=== PATIENT | male | born 1980 | race Two or more races ===

== ENCOUNTER 2023-09-14 21:42 | Emergency (ER) | payer MEDICAID, SELFPAY ==
[2023-09-14 21:45] VITALS: BP 140/81; PULSE 79; TEMP 36.9; O2SAT 97; BMI 42.2
--- NOTE | 2023-09-14 21:52 | ED_ITS ---
HPI HPI - Back Pain/Injury General Chief Complaint: Back Pain/Injury Stated Complaint: back pain Time Seen by Provider: 09/14/23 21:46 Source: patient Mode of arrival: walk-in History of Present Illness HPI Narrative: This 42-year-old male with a history of left-sided sciatica since last December presents for evaluation of ongoing and worsening pain. The pain is in his left buttock area and radiates down the lateral aspect of his left leg to his knee. He states at times it radiates down to his foot and he has spasm of his great toe. He denies any bowel or bladder dysfunction. He denies any recent falls or injuries. He works as a employee development director and states he has been doing a lot of twisting motion because they are clearing out brush. He has not been able to sleep for the last several nights because he cannot get comfortable when he tries to relax. He states that once he gets up in the morning and starts moving he can tolerate the pain but when he tries to lay down he cannot get comfortable. His made him come to the emergency department today because she states he has not slept in the past 3 nights so she has not slept either. He has not had any fever. He has not had any chest pain or shortness of breath. He has no calf pain or swelling. He does not smoke. He is not diabetic. He has an MRI scheduled on September 19 for further evaluation of this ongoing sciatica. He has been using Tylenol and gabapentin without significant improvement in his pain. He states that he puts ice packs behind his buttock on the way home from work and has been doing his physical therapy exercises. I reviewed his [facility] report and the gabapentin has been prescribed by Dr. Johnson. Related Data Home Medications ?Medication ?Instructions ?Recorded ?Confirmed gabapentin 300 mg capsule mg 09/14/23 Allergies Allergy/AdvReac Type Severity Reaction Status Date / Time No Known Drug Allergies Allergy Verified 09/14/23 21:52 Opioid HPI Opioid Management Most Recent Opioid Data: Last Pain Scale 10 09/14/23 22:47 Last ED Pain Assessment 09/14/23 22:47 Prescription drug monitoring program results: PDMP reviewed and no issues identified Review of Systems ROS Status of ROS 10 or more systems reviewed and unremark able except as noted in history and below Exam Narrative Exam Narrative: Vital signs and Nursing Notes reviewed: Patient is afebrile with a normal pulse, blood pressure is mildly elevated at 140/81, he is not hypoxic with pulse ox of 90% on room air General: Awake, alert, oriented, uncomfortable appearing moderately overweight adult male, he is sitting on the stretcher mostly on his right buttock due to pain in the left buttock and left leg, no respiratory distress HEENT: Normocephalic atraumatic, mucous membranes are moist and pink, eyes are clear, normal conjunctiva, vision is grossly intact Neck: Supple, no meningeal signs, no anterior or posterior cervical lymphadenopathy Chest: Lungs are clear to auscultation with good air entry, there is no wheezing rhonchi or rales appreciated no accessory muscle use, patient is speaking in complete sentences-no chest wall tenderness to palpation CVS: Regular rate and rhythm S1-S2, no murmurs rubs or gallops, pulses are brisk and equal bilaterally ABD: Soft, nondistended, nontender, no rebound guarding or rigidity, bowel sounds are normal, no pulsatile masses appreciated Extremities: Moving all extremities, no lower extremity tenderness or swelling noted, Musculoskeletal: There is tenderness in the left buttock, lateral aspect of the left trochanter and along the left thigh iliotibial band to the knee. There is no calf tenderness, swelling, redness or indurated cords. Skin: Normal in appearance without rash,pallor, petechiae or purpura Neuro: No focal deficits, no saddle anesthesia, deep tendon patellar reflexes were 1/ 4 on the right knee and 3/4 on the left knee Constitutional Vital Signs, click to edit/add: Last Vital Signs Temp 98.4 F 09/14/23 21:45 Pulse 79 09/14/23 21:45 Resp 16 09/14/23 21:45 BP 140/81 09/14/23 21:45 Pulse Ox 97 09/14/23 21:45 O2 Del Method Room Air 09/14/23 21:45 Course Vital Signs Vital signs: Vital Signs Temperature 98.4 F 09/14/23 21:45 Pulse Rate 79 09/14/23 21:45 Respiratory Rate 16 09/14/23 21:45 Blood Pressure 140/81 09/14/23 21:45 Pulse Oximetry 97 09/14/23 21:45 Oxygen Delivery Method Room Air 09/14/23 21:45 Temperature 98.4 F 09/14/23 21:45 Pulse Rate 79 09/14/23 21:45 Respiratory Rate 16 09/14/23 21:45 Blood Pressure 140/81 09/14/23 21:45 Pulse Oximetry 97 09/14/23 21:45 Oxygen Delivery Method Room Air 09/14/23 21:45 MDM - Back Pain/Injury MDM Narrative Medical decision making narrative: This 42-year-old male with a history of sciatica presents for evaluation of ongoing and worsening left buttock pain that radiates down into his left lateral thigh to his knee. He has an MRI scheduled next Tuesday. He has been using gabapentin, Tylenol and ice as well as doing physical therapy to help relieve his symptoms to no avail. His made him come to the emergency department this evening because he has not slept in the last 3 days. He is not having any chest pain, palpitations, dizziness or neurologic symptoms. He was medicated emergency department with Solu-Medrol, Toradol, IM Valium and given oral Percocet and Zofran to prevent nausea. On re-evaluation, he is feeling better and thinks he will be comfortable going home. He will be given 2 Percocet to take home and a prescription for Percocet and ibuprofen, zofran, colace and medrol dose pack to use as needed for ongoing pain. He was encouraged to continue doing his stretching exercises as directed by physical therapy. Discharge Plan Discharge Stand Alone Forms: Portal Instructions Chief Complaint: Back Pain/Injury Clinical Impression: Sciatica, Lumbar radiculopathy Patient Disposition: Home, Self-Care Time of Disposition Decision: 22:58 Condition: Good Prescriptions / Home Meds: No Action gabapentin 300 mg capsule Print Language: Tristanian Referrals: Kiran Gaspar MD [Primary Care Provider] - 1 week
[2023-09-14] MEDS: KETOROLAC TROMETHAMINE 60 MG/2 ML VIAL IM (22:23)
[2023-09-14] MEDS: METHYLPREDNISOLONE SOD SUCC PF 125 MG/2 ML VIAL IM (22:24)
[2023-09-14] MEDS: DIAZEPAM 10 MG/2 ML SYRINGE 5 MG IM (22:24)
[2023-09-14] MEDS: OXYCODONE HCL/ACETAMINOPHEN 5MG/325MG 2 TAB PO (22:24)
[2023-09-14] MEDS: OXYCODONE HCL/ACETAMINOPHEN 5MG/325MG 1 TAB PO (22:25)
[2023-09-14] MEDS: ONDANSETRON 4 MG RAPDIS TABLET SL (22:38)
== END 2023-09-14 23:06 | disposition home or self-care (01) ==
PROVIDERS: Emergency Provider Emergency Medicine; PCP Family Medicine
DX: M54.32 Sciatica, left side (principal); M54.16 Radiculopathy, lumbar region
CPT/HCPCS: 96372; 99284; J1885; J2919; J3360; Q0162

== ENCOUNTER 2024-05-15 12:22 | Outpatient (OUT) | payer OTHER, SELFPAY | END 2024-05-15 12:23 | disposition home or self-care (01) | LOC: PST 12:22 | PROVIDERS: PCP Family Medicine; Visit Provider Surgery | DX: Z01.818 Encounter for other preprocedural examination (principal); Z86.0100 Personal history of colon polyps, unspecified ==

== ENCOUNTER 2024-05-23 08:07 | Day surgery (SDC) | payer OTHER, SELFPAY ==
--- NOTE | 2024-05-23 | OP_ITS ---
OPERATION DATE: 05/23/2024 PREOPERATIVE DIAGNOSIS: Personal history of colon polyps. POSTOPERATIVE DIAGNOSIS: 2 mm sigmoid polyp. PROCEDURE: Colonoscopy to cecum with cold forceps polypectomy x1. SURGEON: Norm Brito M.D. ANESTHESIA: Monitored anesthesia care. ESTIMATED BLOOD LOSS: Less than 1 mL. INDICATIONS AND CONSENT: Patient is a 43-year-old male with a personal history of colon polyps. Indications, risks, benefits, alternatives of proceeding with colonoscopy were explained extensively to the patient, including the risks of bleeding, colon perforation or anesthetic complications. All of his questions were answered. Informed consent was obtained. PROCEDURE: Patient was brought to the operating room, placed in the left lateral decubitus position. Monitored anesthesia care was provided. Rectal exam was performed which showed no masses or blood. The scope was inserted into the anal canal. Under direct visualization was advanced. It was advanced to the cecum where cecal markings were clearly identified. There was noted to be a good prep. Upon withdrawal of the scope, mucosal surfaces were carefully examined. There were no mass lesions or inflammatory changes. No significant diverticulosis. Within the distal sigmoid colon, there was noted to be a 2 mm sessile polyp on a fold that was removed with cold biopsy forceps with good hemostasis. The scope was retroflexed in the anal canal. There was no significant hemorrhoidal disease. The scope was then withdrawn. Patient tolerated procedure well, was sent to recovery room in good condition.surveillance colonoscopy should be in 5 years, but will depend on pathology report. CC: Kiran Gaspar M.D. KRISTINA
[2024-05-23 08:16] VITALS: BP 125/83; PULSE 88; TEMP 36.1; O2SAT 96; BMI 41.4
--- OUTSIDE RECORDS SUMMARY | 2024-05-23 08:17 | XMS_ITS | CCD ---
Author Organization [facility] Care Team Providers Care Special Education Tutor Name Role Phone DR OLIVER KRAMER Consulting Unavailable PAY, DR MENJIVAR Admitting Unavailable PAY, DR MENJIVAR Attending Unavailable NADERER, DR KIRAN Jernigan Primary Care Unavailable PAY, DR MENJIVAR Consulting Unavailable BRAVO, DR LETTY Drake Consulting Unavailable NADERER, DR KIRAN Jernigan Admitting Unavailable NADERER, DR KIRAN Jernigan Attending Unavailable NADERER, DR KIRAN Jernigan Primary Care Unavailable NADERER, DR KIRAN Jernigan Consulting Unavailable NANDINI MONZON Consulting Unavailable NILL, DR LINARES Consulting Unavailable JENARO, JOHNY Consulting Unavailable Policaro, Geovanna Consulting Unavailable Paul Mujica Consulting Unavailable CHERELLE BILLINGS Attending Unavailable NADEREVidal, KIRAN Primary Care Unavailable CHERELLE BILLINGS Attending Unavailable CHERELLE BILLINGS Referring Unavailable JUSTINE, KIRAN Primary Care Unavailable PEEWEE DALLAS Attending Unavailable KIRAN FLETCHER Referring Unavailable JUSTINE, KIRAN Primary Care Unavailable PEEWEE DALLAS Attending Unavailable PEEWEE DALLAS Referring Unavailable JUSTINE, KIRAN Primary Care Unavailable JACQUES DALLAS Attending Unavailable JUSTINE, KIRAN Referring Unavailable JUSTINE, KIRAN Primary Care Unavailable Peewee Campbell Unavailable [phone] Kiran Fletcher MD Primary Care Provider KIRAN FLETCHER Attending Unavailable SHAIKH TAO Attending Unavailable Kiran Fletcher MD Primary Care Provider Kiran Fletcher MD Primary Care Provider Kiran Fletcher MD Primary Care Provider KIRAN FLETCHER Primary Care Physician [phone] Milagros SOLORZANO Attending Unavailable KIRAN FLETCHER Referring Unavailable Allergies Allergy Classification Reported Allergen(s) Allergy Type Date of Onset Reaction(s) Facility (1 source) No Known Medication Allergies; Translations: [No Known Medication Allergies] Propensity to adverse reactions (disorder) [facility] Repository Medications Current Medications Medication Drug Class(es) Dates Sig (Normalized) Sig (Original) gabapentin 300 mg oral capsule (6 sources) Anti-epileptic Agent Start: 07-27-2023 End: 04-18-2024 take 1 capsule by mouth in the morning, then take 1 capsule by mouth in the evening, then take 1 capsule by mouth at bedtime gabapentin (Neurontin) 300 MG capsule Indications: Lumbar back pain with radiculopathy affecting left lower extremity Take 1 capsule (300 mg) by mouth in the morning and 1 capsule (300 mg) in the evening and 1 capsule (300 mg) before bedtime. 90 capsule 2 07/27/2023 04/18/2024 Discontinued Problems Active Problems Problem Classification Problem Date Documented Da te Episodic/Chronic Abdominal pain (1 source) Unspecified abdominal pain; Translations: [UNSPECIFIED ABDOMINAL PAIN] Onset: 08-19-2020 Episodic Anal and rectal conditions (5 sources) Other specified diseases of anus and rectum; Translations: [Rectal abscess] Onset: 08-12-2020 Episodic Anxiety disorders (1 source) Anxiety disorder, unspecified; Translations: [ANXIETY DISORDER UNSPECIFIED] Onset: 07-01-2020 Chronic Diverticulosis and diverticulitis (1 source) Diverticular disease 04-23-2024 Chronic Essential hypertension (1 source) Essential (primary) hypertension; Translations: [ESSENTIAL PRIMARY HYPERTENSION] Onset: 08-19-2020 Chronic Joint disorders and dislocations; trauma-related (3 sources) Derangement of right knee; Translations: [Unspecified internal derangement of right knee] Onset: 07-27-2023 Resolved: 04-18-2024 04-18-2024 Chronic Joint disorders and dislocations; trauma-related (3 sources) Derangement of left knee; Translations: [Unspecified internal derangement of left knee] Onset: 07-27-2023 Resolved: 04-18-2024 04-18-2024 Chronic Osteoarthritis (6 sources) Primary gonarthrosis, bilateral; Translations: [Bilateral primary osteoarthritis of knee] Onset: 07-27-2023 Resolved: 04-18-2024 04-18-2024 Chronic Other aftercare (1 source) Other [place] (current[facility] drug therapy; Translations: [OTH USP CURRENT DRUG THERAPY] Onset: 08-19-2020 Episodic Other and unspecified benign neoplasm (8 sources) History of polyp of colon; Translations: [History of colon polyps] Onset: 04-18-2024 04-18-2024 Episodic Other gastrointestinal disorders (1 source) Irritable bowel syndrome 04-23-2024 Chronic Other nutritional; endocrine; and metabolic disorders (4 sources) Severe obesity; Translations: [Class 3 severe obesity due to excess calories without serious comorbidity with body mass index (BMI) of 40.0 to 44.9 in adult ([facility])] Onset: 04-18-2024 04-18-2024 Chronic Other nutritional; endocrine; and metabolic disorders (1 source) Body mass index 40+ - severely obese 04-23-2024 Chronic Other nutritional; endocrine; and metabolic disorders (1 source) Obese class III 04-23-2024 Chronic Spondylosis; intervertebral disc disorders; other back problems (4 sources) Spondylosis without myelopathy or radiculopathy, lumbosacral region; Translations: [Other intervertebral disc displacement, lumbar region] Onset: 08-30-2023 08-30-2023 Chronic Spondylosis; intervertebral disc disorders; other back problems (10 sources) Cervicalgia; Translations: [Intervertebral disc disorders with radiculopathy, lumbar region] Onset: 07-01-2020 04-18-2024 Episodic Substance-related disorders (1 source) Cannabis use, unspecified, uncomplicated; Translations: [CANNABIS USE UNS UNCOMPLICATED] Onset: 08-19-2020 Episodic Unclassified (1 source) CONTACT W/AND (SUSP) EXPOS COVID-19; Translations: [CONTACT W/AND (SUSP) EXPOS COVID-19] Onset: 08-19-2020 Unclassified (1 source) Cough, Trouble Breathing Onset: 07-09-2023 Past or Other Problems Problem Classification Problem Date Documented Da te Episodic/Chronic Acute bronchitis (1 source) Acute bronchitis, unspecified; Translations: [Acute bronchitis, unspecified] Onset: 07-09-2023 Episodic Nonspecific chest pain (5 sources) Chest pain, unspecified; Translations: [Other chest pain] Onset: 06-27-2020 Episodic Other lower respiratory disease (1 source) Cough Onset: 07-09-2023 Episodic Other non-traumatic joint disorders (1 source) Pain in left shoulder; Translations: [PAIN IN LEFT SHOULDER] Onset: 07-01-2020 Episodic Results Test Name Value Interpretation Reference Range Facility Ambulatory Visit Summaryon 0 05-08-2024 Ambulatory Visit Summary Ambulatory Visit Summary LEO HAMEED :1980 Visit Date:05/08/2024 Ambulatory Visit Instructions Your Diagnosis Personal history of adenomatous and serrated colon polyps Your Care Team Attending Physician - RASHAD DIEZ, Milagros Drake Primary Care Physician - JUSTINE DIEZ, KIRAN Referring Physician - JUSTINE DIEZ, KIRAN Procedures Performed Colonoscopy (09/25/2020), Arthroscopy of knee, Colonoscopy, Meniscal repair. Discharge Vitals Heart Rate (Peripheral) 72 Respiratory Rate 16 Blood Pressure 126/88 Height 185.4 cm Height 73 in Weight 144.7 kg Weight 319.009 lb BMI 42.1 Allergies No Known Allergies No Known Medication Allergies Problems Ongoing - Any problem that you are currently receiving treatment for. BMI 40.0-44.9, adult Class 3 obesity Diverticulosis IBS (irritable bowel syndrome) Lumbar stenosis Personal history of adenomatous and serrated colon polyps Patient Survey You may receive a survey via text or e-mail asking about your office visit. Please share your experience with us by completing your survey. We appreciate your feedback and thank you for choosing us for your care. Normal [facility] MR LUMBAR SPINE WO CONTon MR LUMBAR SPINE WO CONT MR LUMBAR SPINE WO CONT MR LUMBAR SPINE WO CONT 09/20/2023 7:23 AM INDICATION: Lumbar radiculopathy, chronic, left sciatic pain COMPARISON: None TECHNIQUE: Multiplanar multisequence MR images of the lumbar spine without contrast were obtained. FINDINGS: NUMBERING/ALIGNMENT: There are 5 lumbar type vertebrae. Vertebral body alignment is appropriate. Facet alignment is appropriate. Vertebral body heights are well-maintained. BONE MARROW: Normal bone marrow signal throughout. SPINAL CORD: Visualized portions of the spinal cord are unremarkable. Conus medullaris tip is at L1. Cauda equina nerve roots are normal in morphology and configuration. SACRUM: Visualized portions of the sacrum are unremarkable. SOFT TISSUES: Unremarkable paraspinal soft tissues. DEGENERATIVE FINDINGS: Minimal degenerative disc disease throughout. Prominent epidural fat throughout. Suggestion of diffusely slightly congenitally small spinal canal. L1-L2: Minimal disc bulge and facet degeneration. Mild effacement of thecal sac. Mild bilateral neural foraminal narrowing. L2-L3: Mild disc bulge and mild to moderate facet degeneration as well as mild ligamentum flavum hypertrophy. There is mild spinal canal stenosis and mild to moderate thecal sac narrowing, part due to prominent epidural fat. There is mild to moderate bilateral neural foraminal narrowing. L3-L4: Mild disc bulge and mild facet degeneration as well as mild ligamentum flavum hypertrophy. There is mild to moderate spinal canal stenosis. There is mild to moderate bilateral neural foraminal narrowing. L4-L5: Mild disc bulge and mild facet degeneration. There is mild to moderate spinal canal stenosis. There is mild to moderate bilateral neural foraminal narrowing. L5-S1: Mild disc bulge and mild saturation. There is mild effacement of thecal sac. There is mild to moderate bilateral neural foraminal narrowing. IMPRESSION: Multilevel mild to moderate degenerative changes of the lumbar spine with multilevel mild to moderate spinal canal and neural foraminal narrowing. There is prominence of the epidural fat throughout and likely congenitally small spinal canal. Approved by Resident Samira Arguelles DO on 09/22/2023 11:13 AM IVitaliy DO have personally reviewed the image(s) and agree with and/or edited the report Finalized by Vitaliy Baptiste DO on 09/22/2023 11:51 AM [facility] SARS/FLU A+B/RSV by NAAT/[facility] 07-09-2023 SARS/FLU A+B/RSV by NAAT/Molecular FLU A PCR Negative (qualifier value) FLU B PCR Negative (qualifier value) RSV by PCR Negative (qualifier value) SARS CoV 2 Not detected (qualifier value) NOTE The Xpert Xpress SARS-CoV-2/Flu/RSV Plus test is a rapid, multiplexed real-time RT-PCR test intended for the simultaneous qualitative detection and differentiation of SARS-CoV-2, influenza A, influenza B and respiratory syncytial virus (RSV) viral RNA from individuals suspected of respiratory viral infection consistent with COVID-19 by their healthcare provider. This test has not been validated in asymptomatic patients. The Xpert Xpress SARS-CoV-2 test is intended for use by qualified and trained operators who are performing tests using either Softricitypert DX or GeneXpert Shout systems and is limited to laboratories that meet the CLIA requirements to perform high and moderate complexity tests. The Xpert Xpress SARS-CoV-2/Flu/RSV Plus is only for use under the Food and Drug Administration's Emergency Use Authorization. Results are for the simultaneous detection and differentiation of SARS-CoV-2, influenza A, influenza B and RSV nucleic acids in clinical specimens. SARS-CoV-2, influenza A, influenza B and RSV RNA identified by this test are generally detectable in upper respiratory samples during the acute phase of infection. Positive results are indicative of the presence of the identified virus, but do not rule out bacterial infection or co-infection with other pathogens not detected by this test. Clinical correlation with patient history and other diagnostic information is necessary to determine patient infection status. The agent detected may not be the definite cause of disease. Negative results do not preclude SARS-CoV-2, influenza A, influenza B and RSV infection and should not be used as the sole basis for treatment or other patient management decisions. Negative results must be combined with clinical observations, patient history and epidemiological information. An Invalid result may occur with specimen-associated inhibition unable to be resolved with specimen repeat. Fact Sheet for Healthcare Providers: https://www.fda.gov/me slade/326984/download Fact Sheet for Patients: https://www.fda.gov/me slade/820694/download Normal [facility] Comment on above: Performed By: #### C OVFLR #### [facility] ([id number]) [address] [place] [address], [place] [address] XR CHEST 1 VWon 07-09-2023 XR CHEST 1 VW XR CHEST 1 VW CLINICAL HISTORY: Cough, fever COMPARISON: None. TECHNIQUE: AP upright chest FINDINGS: The trachea is midline and the cardiomediastinal silhouette is within normal limits. There is no airspace consolidation. No pleural effusion or pneumothorax. IMPRESSION: * No evidence of acute cardiopulmonary process. Finalized by Gwendolyn Telles MD on 07/09/2023 10:52 PM Normal [facility] MRI Knee w/o Lefton 06-19-19 MRI Knee w/o Left HISTORY: Patient fel t a pop 2 months ago. Anterior, medial, and posterior knee pain. History of arthroscopy 5 years ago. COMPARISON: Radiographs of the knee 05/20/2021 TECHNIQUE: Multiplanar multisequence MRI of the left knee was performed without contrast. FINDINGS: Quadriceps and patellar tendons are intact. Small knee joint effusion. The anterior ligament and posterior cruciate ligament are intact. The medial collateral ligament, lateral collateral ligament, and popliteus myotendinous unit are intact. Horizontally oriented linear hyperintense signal within the anterior horn through body of the lateral meniscus may reach the articular surface on one image. Horizontally oriented linear hyperintense signal is present within the body through posterior horn of the medial meniscus extending to the inferior articular surface. It is difficult to determine whether these signal abnormalities represent scarring or meniscus tears given the history of prior surgery without prior imaging available for review. Small nonspecific focus of mild bone marrow edema within the medial tibial plateau subjacent to the posterior horn of the medial meniscus. The medial meniscus is small in size and correlation for history of partial meniscectomy is recommended. No well defined or measurable articular cartilage defect or subchondral bone marrow edema. Popliteal fossa structures are intact. Mancia's cyst measures approximately 2.4 cm in AP dimension by 1.6 cm in transverse dimension by 5.5 cm in craniocaudal dimension and contains a 9 mm loose body. IMPRESSION: Horizontal tear of the anterior horn through body of the lateral meniscus versus scarring. Horizontal tear of the body to posterior horn of the medial meniscus versus scarring. Report reported and signed by Paul Mahoney on 06/18/2021 1037 Normal [facility] CBC AUTO DIFFon 08-14-2020 BASO # 0.0 103/ul Normal 0.0-0.1 [facility] Comment on above: Performed By: #### C BC #### [facility] [address] [place], [place] [address] Jana Skylar Basophils/100 WBC (Bld) 0.3 % Normal 0.2-2.0 [facility] Comment on above: Performed By: #### C BC #### [facility] [address] [place], [place] [address] Jana Skylar EO # 0.2 103/ul Normal 0.0-0.7 [facility] Comment on above: Performed By: #### C BC #### [facility] [address] [place] [id number] Jana Skylar Eosinophils/100 WBC (Bld) 2.1 % Normal 0.9-7.0 [facility] Comment on above: Performed By: #### C BC #### [facility] [address] [place] [id number] Jana Skylar Erythrocyte distribution width (RBC) [Ratio] 13.1 % Normal 11.0-15.0 [facility] Comment on above: Performed By: #### C BC #### [facility] [address] [place], [place] [id number] Jana Skylar Hematocrit (Bld) [Volume fraction] 36.8 % Critically low 42.0-54.0 [facility] Comment on above: Performed By: #### C BC #### [facility] [address] [place], [place] [id number] Jana Skylar Hemoglobin (Bld) [Mass/Vol] 12.3 g/dL Critically low 14.0-18.0 [facility] Comment on above: Performed By: #### C BC #### [facility] [address] [place], [place] [id number] Jana Skylar IG # 0.06 10e3/ul Critically high 0.00-0.03 [facility] Comment on above: Performed By: #### C BC #### [facility] [address] [place], [place] [id number] Jana Skylar IG % 0.6 % Critically high 0.0-0.5 [facility] Comment on above: Performed By: #### C BC #### [facility] [address] [place], [place] [id number] Jana Skylar LYMPH # 1.7 103/ul Normal 1.2-3.8 [facility] Comment on above: Performed By: #### C BC #### [facility] [address] [place], [place] [id number] Jana Skylar Lymphocytes/100 WBC (Bld) 17.4 % Critically low 20.5-60.0 [facility] Comment on above: Performed By: #### C BC #### [facility] [address] [place] [address] Jana Cheng MANUAL DIFF REQ NO Normal [facility] Comment on above: Performed By: #### C BC #### [facility] [address] [place] [address] Jana Cheng MCH (RBC) [Entitic mass] 29.2 pg Normal 25.9-34.0 [facility] Comment on above: Performed By: #### C BC #### [facility] [address] [place] [address] Jana Cheng MCHC (RBC) [Mass/Vol] 33.4 g/dL Normal 29.9-35.2 [facility] Comment on above: Performed By: #### C BC #### [facility] [address] [place] [address] Jana Cheng MCV (RBC) [Entitic vol] 87.4 fL Normal 80.0-94.0 [facility] Comment on above: Performed By: #### C BC #### [facility] [address] [place] [address] Jana Cheng MONO # 1.0 103/ul Critically high 0.3-0.8 [facility] Comment on above: Performed By: #### C BC #### [facility] [address] [place] [address] Jana Cheng Monocytes/100 WBC (Bld) 10.6 % Normal 1.7-12.0 [facility] Comment on above: Performed By: #### C BC #### [facility] [address] [place] [address] Jana Cheng NEUT # 6.6 103/ul Critically high 1.4-6.5 [facility] Comment on above: Performed By: #### C BC #### [facility] [address] [place], [place] [id number] Jana Skylar Neutrophils/100 WBC (Bld) 69.0 % Normal 43.0-75.0 [facility] Comment on above: Performed By: #### C BC #### [facility] [address] [place], [place] [id number] Jana Skylar Platelet mean volume (Bld) [Entitic vol] 9.7 fL Normal 9.5-13.5 [facility] Comment on above: Performed By: #### C BC #### [facility] [address] [place], [place] [id number] Jana Skylar PLT 204 103/ul Normal 150-450 [facility] Comment on above: Performed By: #### C BC #### [facility] [address] [place], [place] [id number] Jana Skylar RBC 4.21 106/ul Critically low 4.70-6.10 [facility] Comment on above: Performed By: #### C BC #### [facility] [address] [place], [place] [id number] Jana Skylar WBC 9.6 103/ul Normal 4.0-11.0 [facility] Comment on above: Performed By: #### C BC #### [facility] [address] [place], [place] [id number] Janajack Petersen PROF CHEM 8 (BAS METB)on Anion gap [Moles/Vol] 10.4 mmol/L Normal [facility] Comment on above: Performed By: #### B MP #### [facility] [address] [place], [place] [id number] Jana Skylar Calcium [Mass/Vol] 8.5 mg/dL Normal 8.4-10.2 [facility] Comment on above: Performed By: #### B MP #### [facility] [address] [place] [address] Jana Skylar Chloride [Moles/Vol] 106 mmol/L Normal 98-107 [facility] Comment on above: Performed By: #### B MP #### [facility] [address] [place], [place] [id number] Jana Skylar CO2 [Moles/Vol] 30.4 mmol/L Critically high 22.0-30.0 [facility] Comment on above: Performed By: #### B MP #### [facility] [address] [place], [place] [id number] Jana Skylar Creatinine [Mass/Vol] 1.04 mg/dL Normal 0.66-1.25 [facility] Comment on above: Performed By: #### B MP #### [facility] [address] [place] [id number] Jana Skylar EGFR-AF ANGUILLAN >60 Normal >=60 [facility] Comment on above: Performed By: #### B MP #### [facility] [address] [place] [id number] Jana Skylar EGFR-NON AF ANGUILLAN >60 Normal >=60 [facility] Comment on above: Performed By: #### B MP #### [facility] [address] [place] [address] Jana Skylar Glucose [Mass/Vol] 116 mg/dL Critically high 74-106 [facility] Comment on above: Performed By: #### B MP #### [facility] [address] [place] [address] Jana Skylar Potassium [Moles/Vol] 3.8 mmol/L Normal 3.4-5.0 [facility] Comment on above: Performed By: #### B MP #### [facility] [address] [place] [address] Jana Skylar Sodium [Moles/Vol] 143 mmol/L Normal 137-145 [facility] Comment on above: Performed By: #### B MP #### [facility] [address] [place] [address] Jana Skylar Urea nitrogen [Mass/Vol] 12.0 mg/dL Normal 9.0-20.0 [facility] Comment on above: Performed By: #### B MP #### [facility] [address] [place], [place] [id number] Jana Skylar Urea nitrogen/Creatinin e [Mass ratio] 11.5 mg/mg Normal [facility] Comment on above: Performed By: #### B MP #### [facility] [address] [place], [place] [id number] Jana Skylar AMYLASEon 08-13-2020 Amylase [Catalytic activity/Vol] 53 U/L Normal 31-110 [facility] Comment on above: Performed By: #### E RUR #### [facility] [address] [place], [place] [address] Jana Skylar CBC AUTO DIFFon 08-13-2020 BASO # 0.0 103/ul Normal 0.0-0.1 [facility] Comment on above: Performed By: #### C BC #### [facility] [address] [place] [id number] Jana Skylar Basophils/100 WBC (Bld) 0.3 % Normal 0.2-2.0 [facility] Comment on above: Performed By: #### C BC #### [facility] [address] [place] [id number] Jana Skylar EO # 0.2 103/ul Normal 0.0-0.7 [facility] Comment on above: Performed By: #### C BC #### [facility] [address] [place] [address] Jana Skylar Eosinophils/100 WBC (Bld) 1.9 % Normal 0.9-7.0 [facility] Comment on above: Performed By: #### C BC #### [facility] [address] [place], [place] [id number] Jana Skylar Erythrocyte distribution width (RBC) [Ratio] 13.2 % Normal 11.0-15.0 [facility] Comment on above: Performed By: #### C BC #### [facility] [address] [place], [place] [id number] Jana Skylar Hematocrit (Bld) [Volume fraction] 40.1 % Critically low 42.0-54.0 [facility] Comment on above: Performed By: #### C BC #### [facility] [address] [place], [place] [id number] Jana Skylar Hemoglobin (Bld) [Mass/Vol] 13.5 g/dL Critically low 14.0-18.0 [facility] Comment on above: Performed By: #### C BC #### [facility] [address] [place] [id number] Jana Skylar IG # 0.05 10e3/ul Critically high 0.00-0.03 [facility] Comment on above: Performed By: #### C BC #### [facility] [address] [place] [id number] Jana Skylar IG % 0.5 % Normal 0.0-0.5 [facility] Comment on above: Performed By: #### C BC #### [facility] [address] [place], [place] [id number] Jana Skylar LYMPH # 1.9 103/ul Normal 1.2-3.8 [facility] Comment on above: Performed By: #### C BC #### [facility] [address] [place], [place] [id number] Janajack Petersen Lymphocytes/100 WBC (Bld) 17.3 % Critically low 20.5-60.0 [facility] Comment on above: Performed By: #### C BC #### [facility] [address] [place] [address] Jana Skylar MANUAL DIFF REQ NO Normal [facility] Comment on above: Performed By: #### C BC #### [facility] [address] [place] [address] Jana Skylar MCH (RBC) [Entitic mass] 29.2 pg Normal 25.9-34.0 [facility] Comment on above: Performed By: #### C BC #### [facility] [address] [place], [place] [id number] Jana Skylar MCHC (RBC) [Mass/Vol] 33.7 g/dL Normal 29.9-35.2 [facility] Comment on above: Performed By: #### C BC #### [facility] [address] [place] [address] Jana Skylar MCV (RBC) [Entitic vol] 86.8 fL Normal 80.0-94.0 [facility] Comment on above: Performed By: #### C BC #### [facility] [address] [place], [place] [id number] Jana Skylar MONO # 1.1 103/ul Critically high 0.3-0.8 [facility] Comment on above: Performed By: #### C BC #### [facility] [address] [place], [place] [id number] Jana Skylar Monocytes/100 WBC (Bld) 9.7 % Normal 1.7-12.0 [facility] Comment on above: Performed By: #### C BC #### [facility] [address] [place], [place] [id number] Janajack Petersen NEUT # 7.6 103/ul Critically high 1.4-6.5 [facility] Comment on above: Performed By: #### C BC #### [facility] [address] [place] [address] Jana Skylar Neutrophils/100 WBC (Bld) 70.3 % Normal 43.0-75.0 [facility] Comment on above: Performed By: #### C BC #### [facility] [address] [place], [place] [id number] Janajack Petersen Platelet mean volume (Bld) [Entitic vol] 9.6 fL Normal 9.5-13.5 [facility] Comment on above: Performed By: #### C BC #### [facility] [address] [place] [address] Jana Skylar PLT 204 103/ul Normal 150-450 [facility] Comment on above: Performed By: #### C BC #### [facility] [address] [place], [place] [id number] Jana Skylar RBC 4.62 106/ul Critically low 4.70-6.10 [facility] Comment on above: Performed By: #### C BC #### [facility] [address] [place] [address] Jana Skylar WBC 10.8 103/ul Normal 4.0-11.0 [facility] Comment on above: Performed By: #### C BC #### [facility] [address] [place], [place] [id number] Jana Skylar BASO # 0.0 103/ul Normal 0.0-0.1 [facility] Comment on above: Performed By: #### E RUR #### [facility] [address] [place], [place] [id number] Jana Skylar Basophils/100 WBC (Bld) 0.2 % Normal 0.2-2.0 [facility] Comment on above: Performed By: #### E RUR #### [facility] [address] [id number] Jana Skylar EO # 0.2 103/ul Normal 0.0-0.7 [facility] Comment on above: Performed By: #### E RUR #### [facility] [address] [id number] Jana Skylar Eosinophils/100 WBC (Bld) 2.0 % Normal 0.9-7.0 [facility] Comment on above: Performed By: #### E RUR #### [facility] [address] [place], [place] [id number] Jana Skylar Erythrocyte distribution width (RBC) [Ratio] 13.2 % Normal 11.0-15.0 [facility] Comment on above: Performed By: #### E RUR #### [facility] [address] [place], [place] [id number] Jana Skylar Hematocrit (Bld) [Volume fraction] 38.6 % Critically low 42.0-54.0 [facility] Comment on above: Performed By: #### E RUR #### [facility] [address] [place], [place] [id number] Jana Skylar Hemoglobin (Bld) [Mass/Vol] 12.6 g/dL Critically low 14.0-18.0 [facility] Comment on above: Performed By: #### E RUR #### [facility] [address] [id number] Jana Skylar IG # 0.07 10e3/ul Critically high 0.00-0.03 [facility] Comment on above: Performed By: #### E RUR #### [facility] [address] [id number] Jana Skylar IG % 0.7 % Critically high 0.0-0.5 [facility] Comment on above: Performed By: #### E RUR #### [facility] [address] [id number] Jana Skylar LYMPH # 1.8 103/ul Normal 1.2-3.8 [facility] Comment on above: Performed By: #### E RUR #### [facility] [address] [place], [place] [address] Janajack Cheng Lymphocytes/100 WBC (Bld) 16.8 % Critically low 20.5-60.0 [facility] Comment on above: Performed By: #### E RUR #### [facility] [address] [place], [place] [address] Jana Skylar MANUAL DIFF REQ NO Normal [facility] Comment on above: Performed By: #### E RUR #### [facility] [address] [place], [place] [address] Janajack Cheng MCH (RBC) [Entitic mass] 29.0 pg Normal 25.9-34.0 [facility] Comment on above: Performed By: #### E RUR #### [facility] [address] [place], [place] [id number] Janajack Cheng MCHC (RBC) [Mass/Vol] 32.6 g/dL Normal 29.9-35.2 [facility] Comment on above: Performed By: #### E RUR #### [facility] [address] [place], [place] [id number] Janajack Petersen MCV (RBC) [Entitic vol] 88.9 fL Normal 80.0-94.0 [facility] Comment on above: Performed By: #### E RUR #### [facility] [address] [place], [place] [id number] Jana Skylar MONO # 1.0 103/ul Critically high 0.3-0.8 [facility] Comment on above: Performed By: #### E RUR #### [facility] [address] [place], [place] [id number] Jana Skylar Monocytes/100 WBC (Bld) 9.0 % Normal 1.7-12.0 [facility] Comment on above: Performed By: #### E RUR #### [facility] [address] [id number] Jana Skylar NEUT # 7.7 103/ul Critically high 1.4-6.5 [facility] Comment on above: Performed By: #### E RUR #### [facility] [address] [place], [place] [id number] Jana Cheng Neutrophils/100 WBC (Bld) 71.3 % Normal 43.0-75.0 [facility] Comment on above: Performed By: #### E RUR #### [facility] [address] [place], [place] [id number] Janajack Cheng Platelet mean volume (Bld) [Entitic vol] 10.1 fL Normal 9.5-13.5 [facility] Comment on above: Performed By: #### E RUR #### [facility] [address] [place], [place] [id number] Janajack Petersen PLT 195 103/ul Normal 150-450 [facility] Comment on above: Performed By: #### E RUR #### [facility] [address] [place], [place] [id number] Jana Skylar RBC 4.34 106/ul Critically low 4.70-6.10 [facility] Comment on above: Performed By: #### E RUR #### [facility] [address] [place], [place] [id number] Janajack Cheng WBC 10.7 103/ul Normal 4.0-11.0 [facility] Comment on above: Performed By: #### E RUR #### [facility] [address] [place], [place] [id number] Jana Cheng ER URINE PROFILEon 1 Bilirubin Ql (U) Negative Normal NEGATIVE [facility] Comment on above: Performed By: #### E RUR #### [facility] [address] [place], [place] [id number] Janajack Cheng Clarity (U) CLEAR Normal CLEAR [facility] Comment on above: Performed By: #### E RUR #### [facility] [address] [place], [place] [id number] Jana Skylar Color (U) LT. YELLOW Normal YELLOW [facility] Comment on above: Performed By: #### E RUR #### [facility] [address] [place], [place] [id number] Jana Skylar ERUAHD A micrscopic examination will be performed if indicated. Normal [facility] Comment on above: Performed By: #### E RUR #### [facility] [address] [place] [address] Jana Skylar Glucose Ql (U) Negative Normal NEGATIVE [facility] Comment on above: Performed By: #### E RUR #### [facility] [address] [place] [address] Jana Skylar Hemoglobin Ql (U) Negative Normal NEGATIVE [facility] Comment on above: Performed By: #### E RUR #### [facility] [address] [place] [address] Jana Skylar Ketones Ql (U) TRACE Abnormal NEGATIVE [facility] Comment on above: Performed By: #### E RUR #### [facility] [address] [place] [address] Jana Skylar LEUKOCYTES Negative Normal NEGATIVE [facility] Comment on above: Performed By: #### E RUR #### [facility] [address] [place] [address] Jana Skylar Nitrite Ql (U) Negative Normal NEGATIVE [facility] Comment on above: Performed By: #### E RUR #### [facility] [address] [place] [address] Jana Skylar pH (U) 6.0 [pH] Normal 5-9 [facility] Comment on above: Performed By: #### E RUR #### [facility] [address] [place] [address] Jana Skylar SPEC GRAVITY 1.010 Normal 1.005-<=1.025 [facility] Comment on above: Performed By: #### E RUR #### [facility] [address] [place] [address] Jana Skylar UA PROTEIN Negative Normal NEGATIVE/ TRACE [facility] Comment on above: Performed By: #### E RUR #### [facility] [address] [place] [address] Jana Skylar UR MICRO IND NOT INDICATED Normal [facility] Comment on above: Performed By: #### E RUR #### [facility] [address] [place] [address] Janajack Petersen Urobilinogen Qn (U) 0.2 {Elver'U}/dL Normal 0.2 - 1.0 [facility] Comment on above: Performed By: #### E RUR #### [facility] [address] [place], [place] [id number] Janajack Cheng LIPASEon 08-13-2020 Lipase [Catalytic activity/Vol] 72.0 U/L Normal 23.0-300.0 [facility] Comment on above: Performed By: #### E RUR #### [facility] [address] [place], [place] [id number] Jana Skylar LIVER PROFILEon 08-13-2020 Albumin [Mass/Vol] 3.4 g/dL Critically low 3.5-5.0 [facility] Comment on above: Performed By: #### E RUR #### [facility] [address] [place], [place] [id number] Jana Skylar Albumin/Globulin [Mass ratio] 0.8 {ratio} Normal [facility] Comment on above: Performed By: #### E RUR #### [facility] [address] [place] [address] Jana Skylar ALP [Catalytic activity/Vol] 75 U/L Normal 38-126 [facility] Comment on above: Performed By: #### E RUR #### [facility] [address] [place] [address] Jana Skylar ALT [Catalytic activity/Vol] 28 U/L Normal 21-72 [facility] Comment on above: Performed By: #### E RUR #### [facility] [address] [place], [place] [id number] Jana Skylar AST [Catalytic activity/Vol] 16 U/L Critically low 17-59 [facility] Comment on above: Performed By: #### E RUR #### [facility] [address] [place], [place] [id number] Jana Skylar BILI, CONJUGATED 0.2 mg/dL Normal 0.0-0.3 [facility] Comment on above: Performed By: #### E RUR #### [facility] [address] [place], [place] [address] Jana Skylar Bilirubin [Mass/Vol] 0.7 mg/dL Normal 0.2-1.3 [facility] Comment on above: Performed By: #### E RUR #### [facility] [address] [place], [place] [address] Jana Skylar Globulin (S) [Mass/Vol] 4.1 g/dL Normal [facility] Comment on above: Performed By: #### E RUR #### [facility] [address] [place], [place] [address] Jana Skylar Protein [Mass/Vol] 7.5 g/dL Normal 6.1-8.2 [facility] Comment on above: Performed By: #### E RUR #### [facility] [address] [place], [place] [id number] Jana Skylar PROF CHEM 8 (BAS METB)on Anion gap [Moles/Vol] 8.9 mmol/L Normal [facility] Comment on above: Performed By: #### C BC #### [facility] [address] [place], [place] [id number] Jana Sklyar Calcium [Mass/Vol] 8.4 mg/dL Normal 8.4-10.2 [facility] Comment on above: Performed By: #### C BC #### [facility] [address] [place], [place] [id number] Jana Skylar Chloride [Moles/Vol] 106 mmol/L Normal 98-107 [facility] Comment on above: Performed By: #### C BC #### [facility] [address] [place], [place] [id number] Jana Skylar CO2 [Moles/Vol] 30.1 mmol/L Critically high 22.0-30.0 [facility] Comment on above: Performed By: #### C BC #### [facility] [address] [place], [place] [id number] Jana Skylar Creatinine [Mass/Vol] 0.95 mg/dL Normal 0.66-1.25 [facility] Comment on above: Performed By: #### C BC #### [facility] [address] [place], [place] [address] Jana Skylar EGFR-AF ANGUILLAN >60 Normal >=60 [facility] Comment on above: Performed By: #### C BC #### [facility] [address] [place], [place] [address] Jana Skylar EGFR-NON AF ANGUILLAN >60 Normal >=60 [facility] Comment on above: Performed By: #### C BC #### [facility] [address] [place], [place] [address] Jana Skylar Glucose [Mass/Vol] 119 mg/dL Critically high 74-106 [facility] Comment on above: Performed By: #### C BC #### [facility] [address] [id number] Jana Skylar Potassium [Moles/Vol] 4.0 mmol/L Normal 3.4-5.0 [facility] Comment on above: Performed By: #### C BC #### [facility] [address] [id number] Jana Skylar Sodium [Moles/Vol] 141 mmol/L Normal 137-145 [facility] Comment on above: Performed By: #### C BC #### [facility] [address] [id number] Jana Skylar Urea nitrogen [Mass/Vol] 12.0 mg/dL Normal 9.0-20.0 [facility] Comment on above: Performed By: #### C BC #### [facility] [address] [place], [place] [id number] Jana Skylar Urea nitrogen/Creatinin e [Mass ratio] 12.6 mg/mg Normal [facility] Comment on above: Performed By: #### C BC #### [facility] [address] [place] [address] Jana Skylar US SINGLE QUAD RT UPPERon US SINGLE QUAD RT UPPER ULTRASOUND RIGHT UPPER QUADRANT HISTORY: Right upper quadrant pain. COMPARISON: CT 08/12/2020 FINDINGS: The liver is diffusely echogenic which limits the sensitivity for intrahepatic masses. There is no intrahepatic biliary ductal dilatation. There is a ring down artifact from the gallbladder wall. There is a question of pericholecystic fluid. There is a possible small gallstone. The common bile duct is borderline dilated measures 7.7 mm. Negative Hernández's sign. The visualized portions of the pancreas appear unremarkable. The right kidney is normal appearing with no evidence of hydronephrosis or masses. IMPRESSION: Possible small gallstone with a question of pericholecystic fluid; borderline dilated CBD. If clinical and laboratory values warrant, a MRCP and/or HIDA scan with gallbladder ejection fraction could be performed. Findings suggestive of adenomyomatosis. Echogenic liver consistent with hepatocellular disease such as fatty infiltration. Electronically authenticated by: GEOVANNA GILLESPIE Date: 2020-08-13 20:36 Normal [facility] XR ABD FLAT_UPon 08-13-2020 XR ABD FLAT_UP IMAGES REVIEWED: XR ABD FLAT_UP COMPARISON: CT abdomen pelvis from yesterday, x-ray abdomen 05/27/2009. CLINICAL INDICATION: Generalized abdominal pain. FINDINGS: No dilated loops of bowel to suggest obstruction. No diffuse gaseous distention of small and large bowel to suggest ileus. No free air under the diaphragm. No focal pathologic calcifications. Visualized lung bases are clear. No evidence of acute osseous abnormality. IMPRESSION: No radiographic evidence of acute abnormality. Electronically authenticated by: JOHNY ESAON Date: 2020-08-13 21:24 Normal [facility] AMYLASEon 08-12-2020 Amylase [Catalytic activity/Vol] 108 U/L Normal 31-110 [facility] Comment on above: Performed By: #### C BC #### [facility] [address] [id number] Jana Cheng CBC AUTO DIFFon 08-12-2020 BASO # 0.0 103/ul Normal 0.0-0.1 [facility] Comment on above: Performed By: #### C BC #### [facility] [address] [place], [place] [address] Jana Cheng Basophils/100 WBC (Bld) 0.3 % Normal 0.2-2.0 [facility] Comment on above: Performed By: #### C BC #### [facility] [address] [place], [place] [address] Jana Skylar EO # 0.2 103/ul Normal 0.0-0.7 [facility] Comment on above: Performed By: #### C BC #### [facility] [address] [place] [address] Jana Skylar Eosinophils/100 WBC (Bld) 1.5 % Normal 0.9-7.0 [facility] Comment on above: Performed By: #### C BC #### [facility] [address] [place] [address] Jana Skylar Erythrocyte distribution width (RBC) [Ratio] 13.2 % Normal 11.0-15.0 [facility] Comment on above: Performed By: #### C BC #### [facility] [address] [place] [address] Jana Skylar Hematocrit (Bld) [Volume fraction] 38.6 % Critically low 42.0-54.0 [facility] Comment on above: Performed By: #### C BC #### [facility] [address] [place] [address] Jana Skylar Hemoglobin (Bld) [Mass/Vol] 12.8 g/dL Critically low 14.0-18.0 [facility] Comment on above: Performed By: #### C BC #### [facility] [address] [place] [address] Jana Skylar IG # 0.06 10e3/ul Critically high 0.00-0.03 [facility] Comment on above: Performed By: #### C BC #### [facility] [address] [place] [address] Jana Skylar IG % 0.5 % Normal 0.0-0.5 [facility] Comment on above: Performed By: #### C BC #### [facility] [address] [place] [address] Jana Skylar LYMPH # 1.8 103/ul Normal 1.2-3.8 [facility] Comment on above: Performed By: #### C BC #### [facility] [address] [place] [address] Jana Skylar Lymphocytes/100 WBC (Bld) 15.3 % Critically low 20.5-60.0 [facility] Comment on above: Performed By: #### C BC #### [facility] [address] [place], [place] [id number] Jana Cheng MANUAL DIFF REQ NO Normal [facility] Comment on above: Performed By: #### C BC #### [facility] [address] [place], [place] [id number] Janajack Cheng MCH (RBC) [Entitic mass] 29.2 pg Normal 25.9-34.0 [facility] Comment on above: Performed By: #### C BC #### [facility] [address] [place], [place] [id number] Jana Cheng MCHC (RBC) [Mass/Vol] 33.2 g/dL Normal 29.9-35.2 [facility] Comment on above: Performed By: #### C BC #### [facility] [address] [place] [address] Janajack Petersen MCV (RBC) [Entitic vol] 88.1 fL Normal 80.0-94.0 [facility] Comment on above: Performed By: #### C BC #### [facility] [address] [place], [place] [id number] Jana Skylar MONO # 1.3 103/ul Critically high 0.3-0.8 [facility] Comment on above: Performed By: #### C BC #### [facility] [address] [place] [address] Jana Petersen Monocytes/100 WBC (Bld) 10.5 % Normal 1.7-12.0 [facility] Comment on above: Performed By: #### C BC #### [facility] [address] [place], [place] [id number] Jana Skylar NEUT # 8.7 103/ul Critically high 1.4-6.5 [facility] Comment on above: Performed By: #### C BC #### [facility] [address] [place], [place] [id number] Jana Skylar Neutrophils/100 WBC (Bld) 71.9 % Normal 43.0-75.0 [facility] Comment on above: Performed By: #### C BC #### [facility] [address] [id number] Janajack Petersen Platelet mean volume (Bld) [Entitic vol] 9.8 fL Normal 9.5-13.5 [facility] Comment on above: Performed By: #### C BC #### [facility] [address] [id number] Jana Skylar PLT 201 103/ul Normal 150-450 [facility] Comment on above: Performed By: #### C BC #### [facility] [address] [id number] Jana Skylar RBC 4.38 106/ul Critically low 4.70-6.10 [facility] Comment on above: Performed By: #### C BC #### [facility] [address] [place] [address] Jana Skylar WBC 12.0 103/ul Critically high 4.0-11.0 [facility] Comment on above: Performed By: #### C BC #### [facility] [address] [place] [address] Jana Skylar BASO # 0.0 103/ul Normal 0.0-0.1 [facility] Comment on above: Performed By: #### C BC #### [facility] [address] [place], [place] [id number] Jana Skylar Basophils/100 WBC (Bld) 0.3 % Normal 0.2-2.0 [facility] Comment on above: Performed By: #### C BC #### [facility] [address] [place], [place] [id number] Jana Skylar EO # 0.1 103/ul Normal 0.0-0.7 [facility] Comment on above: Performed By: #### C BC #### [facility] [address] [place], [place] [id number] Jana Skylar Eosinophils/100 WBC (Bld) 1.1 % Normal 0.9-7.0 [facility] Comment on above: Performed By: #### C BC #### [facility] [address] [id number] Jana Skyalr Erythrocyte distribution width (RBC) [Ratio] 13.2 % Normal 11.0-15.0 [facility] Comment on above: Performed By: #### C BC #### [facility] [address] [place], [place] [id number] Jana Skylar Hematocrit (Bld) [Volume fraction] 41.7 % Critically low 42.0-54.0 [facility] Comment on above: Performed By: #### C BC #### [facility] [address] [place], [place] [id number] Jana Skylar Hemoglobin (Bld) [Mass/Vol] 14.3 g/dL Normal 14.0-18.0 [facility] Comment on above: Performed By: #### C BC #### [facility] [address] [place] [address] Jana Skylar IG # 0.08 10e3/ul Critically high 0.00-0.03 [facility] Comment on above: Performed By: #### C BC #### [facility] [address] [place] [address] Jana Skylar IG % 0.6 % Critically high 0.0-0.5 [facility] Comment on above: Performed By: #### C BC #### [facility] [address] [place], [place] [id number] Jana Skylar LYMPH # 1.9 103/ul Normal 1.2-3.8 [facility] Comment on above: Performed By: #### C BC #### [facility] [address] [place], [place] [id number] Jana Skylar Lymphocytes/100 WBC (Bld) 15.6 % Critically low 20.5-60.0 [facility] Comment on above: Performed By: #### C BC #### [facility] [address] [place], [place] [id number] Janajack Petersen MANUAL DIFF REQ NO Normal [facility] Comment on above: Performed By: #### C BC #### [facility] [address] [place], [place] [id number] Jana Skylar MCH (RBC) [Entitic mass] 29.7 pg Normal 25.9-34.0 [facility] Comment on above: Performed By: #### C BC #### [facility] [address] [place], [place] [id number] Jana Cheng MCHC (RBC) [Mass/Vol] 34.3 g/dL Normal 29.9-35.2 [facility] Comment on above: Performed By: #### C BC #### [facility] [address] [place] [address] Jana Cheng MCV (RBC) [Entitic vol] 86.5 fL Normal 80.0-94.0 [facility] Comment on above: Performed By: #### C BC #### [facility] [address] [place] [address] Jana Cheng MONO # 1.0 103/ul Critically high 0.3-0.8 [facility] Comment on above: Performed By: #### C BC #### [facility] [address] [place] [address] Jana Cheng Monocytes/100 WBC (Bld) 8.2 % Normal 1.7-12.0 [facility] Comment on above: Performed By: #### C BC #### [facility] [address] [place] [address] Jana Cheng NEUT # 9.2 103/ul Critically high 1.4-6.5 [facility] Comment on above: Performed By: #### C BC #### [facility] [address] [place], [place] [id number] Jana Cheng Neutrophils/100 WBC (Bld) 74.2 % Normal 43.0-75.0 [facility] Comment on above: Performed By: #### C BC #### [facility] [address] [place], [place] [id number] Jana Cheng Platelet mean volume (Bld) [Entitic vol] 9.9 fL Normal 9.5-13.5 [facility] Comment on above: Performed By: #### C BC #### [facility] [address] [place], [place] [id number] Jana Skylar PLT 224 103/ul Normal 150-450 [facility] Comment on above: Performed By: #### C BC #### [facility] [address], [place] [address] Jana Cheng RBC 4.82 106/ul Normal 4.70-6.10 [facility] Comment on above: Performed By: #### C BC #### [facility] [address], [place] [address] Jana Cheng WBC 12.4 103/ul Critically high 4.0-11.0 [facility] Comment on above: Performed By: #### C BC #### [facility] [address], [place] [address] ABD/PELV W CONon 08-13-[address] ABD/PELV W CON EXAMINATION: CT ABD/PELV W CON HISTORY: GENERALIZED ABDOMINAL PAIN acute rectal pain and pressure lower abdominal pain. Reported history of ulcerative colitis or diverticulitis. COMPARISON: None. TECHNIQUE: Multiple axial views of the CT abdomen pelvis with IV contrast 100 mL Omnipaque 300 IV contrast. Coronal and sagittal reformats obtained. Dose reduction techniques were achieved by using automated exposure control and/or adjustment of mA and/or kV according to patient size and/or use of iterative reconstruction technique. FINDINGS: Visualized lung bases unremarkable. Visualized cardiac apex unremarkable. Mild hepatic steatosis. 2 mm gallstone. Pancreas, spleen, right adrenal gland unremarkable. 11 mm hypodense left adrenal nodule, probably lipid rich adenoma. MRI abdomen or adrenal mass protocol can further confirm or evaluate. No evidence for bowel obstruction, large ascites, or free air. Appendix unremarkable. No evidence for appendicitis. Moderate amount stool throughout the large bowel with mild diverticula. No evidence for overt diverticulitis. Mild anal rectal wall thickening, sequela of proctitis or inflammation. A 19 mm left perianal rim-enhancing fluid collection, likely abscess. Surrounding cellulitis/skin inflammation. No acute bony abnormality. IMPRESSION: A 19 mm left perianal rim-enhancing fluid collection, likely abscess. Surrounding cellulitis/skin inflammation. Mild anal rectal wall thickening, sequela of proctitis or inflammation. Electronically authenticated by: PAUL MUJICA Date: 2020-08-12 01:43 Normal [facility] CULTURE BLOODon 06-08-2021 Microscopic examination of blood, culture Culture Observations: NO GROWTH AT 5 DAYS. Normal [facility] Comment on above: Performed By: #### E RUR #### [facility] [address] [place], [place] [id number] Jana Cheng Covid-19 PCR (CVDTB)on SARS-CoV-2 (COVID-19) RNA TONIO+probe Ql (Unsp spec) Not detected Normal NOT DETECTED [facility] Comment on above: Result Comment: This test is not yet approved or cleared by the [place] FDA. When there are no FDA-approved or cleared tests available, and other criteria are met, FDA can make tests available under an emergency access mechanism called an Emergency Use Authorization (EUA). The EUA for this test is supported by the Radiation Safety Officer of Health and Human Service's (HHS's) declaration that circumstances exist to justify the emergency use of in vitro diagnostics for the detection and/or diagnosis of the virus that causes COVID-19. This EUA will remain in effect (meaning this test can be used) for the duration of the COVID-19 declaration justifying emergency of IVDs, unless it is terminated or revoked by FDA (after which the test may no longer be used). When diagnostic testing is negative, the possibility of a false negative should be considered in the context of a patient's recent exposures and the presence of clinical signs and symptoms consistent with SARS-CoV-2. Performed By: #### C VDTBH #### [facility] [address] [place], [place] [id number] Jana Cheng LACTATE/LACTIC ACIDon 2020 Lactate [Moles/Vol] 0.2 mmol/L Critically low 0.7-2.0 [facility] Comment on above: Performed By: #### L ACT #### [facility] [address] [place], [place] [id number] Jana Cheng LIPASEon 08-12-2020 Lipase [Catalytic activity/Vol] 522.0 U/L Critically high 23.0-300.0 [facility] Comment on above: Performed By: #### C BC #### [facility] [address] [place], [place] [id number] Jana Cheng PROF 14(COMP METB)on 021 Albumin [Mass/Vol] 3.9 g/dL Normal 3.5-5.0 [facility] Comment on above: Performed By: #### C BC #### [facility] [address] [place], [place] [id number] Jana Skylar Albumin/Globulin [Mass ratio] 1.1 {ratio} Normal [facility] Comment on above: Performed By: #### C BC #### [facility] [address] [place], [place] [id number] Jana Skylar ALP [Catalytic activity/Vol] 90 U/L Normal 38-126 [facility] Comment on above: Performed By: #### C BC #### [facility] [address] [place], [place] [id number] Jana Skylar ALT [Catalytic activity/Vol] 21 U/L Normal 21-72 [facility] Comment on above: Performed By: #### C BC #### [facility] [address] [place] [address] Jana Skylar Anion gap [Moles/Vol] 12.8 mmol/L Normal [facility] Comment on above: Performed By: #### C BC #### [facility] [address] [place], [place] [id number] Jana Skylar AST [Catalytic activity/Vol] 12 U/L Critically low 17-59 [facility] Comment on above: Performed By: #### C BC #### [facility] [address] [place], [place] [id number] Jana Skylar Bilirubin [Mass/Vol] 0.6 mg/dL Normal 0.2-1.3 [facility] Comment on above: Performed By: #### C BC #### [facility] [address] [place], [place] [id number] Jana Skylar Calcium [Mass/Vol] 9.1 mg/dL Normal 8.4-10.2 [facility] Comment on above: Performed By: #### C BC #### [facility] [address] [place], [place] [id number] Jana Skylar Chloride [Moles/Vol] 105 mmol/L Normal 98-107 [facility] Comment on above: Performed By: #### C BC #### [facility] [address] [place] [id number] Jana Skylar CO2 [Moles/Vol] 28.2 mmol/L Normal 22.0-30.0 [facility] Comment on above: Performed By: #### C BC #### [facility] [address] [place] [address] Jana Skylar Creatinine [Mass/Vol] 1.02 mg/dL Normal 0.66-1.25 [facility] Comment on above: Performed By: #### C BC #### [facility] [address] [place] [address] Jana Skylar EGFR-AF ANGUILLAN >60 Normal >=60 [facility] Comment on above: Performed By: #### C BC #### [facility] [address] [place] [address] Jana Skylar EGFR-NON AF ANGUILLAN >60 Normal >=60 [facility] Comment on above: Performed By: #### C BC #### [facility] [address] [place] [address] Jana Skylar Globulin (S) [Mass/Vol] 3.5 g/dL Normal [facility] Comment on above: Performed By: #### C BC #### [facility] [address] [place] [address] Jana Skylar Glucose [Mass/Vol] 105 mg/dL Normal 74-106 [facility] Comment on above: Performed By: #### C BC #### [facility] [address] [place] [address] Jana Skylar Potassium [Moles/Vol] 4.0 mmol/L Normal 3.4-5.0 [facility] Comment on above: Performed By: #### C BC #### [facility] [address] [place] [address] Jana Skylar Protein [Mass/Vol] 7.4 g/dL Normal 6.1-8.2 [facility] Comment on above: Performed By: #### C BC #### [facility] [address] [place] [id number] Jana Skylar Sodium [Moles/Vol] 142 mmol/L Normal 137-145 [facility] Comment on above: Performed By: #### C BC #### [facility] [address] [place] [id number] Jana Skylar Urea nitrogen [Mass/Vol] 14.0 mg/dL Normal 9.0-20.0 [facility] Comment on above: Performed By: #### C BC #### [facility] [address] [place], [place] [id number] Jana Skylar Urea nitrogen/Creatinin e [Mass ratio] 13.7 mg/mg Normal [facility] Comment on above: Performed By: #### C BC #### [facility] [address] [place], [place] [id number] Jana Skylar PROF CHEM 8 (BAS METB)on Anion gap [Moles/Vol] 11.2 mmol/L Normal [facility] Comment on above: Performed By: #### C BC #### [facility] [address] [place], [place] [id number] Jana Skylar Calcium [Mass/Vol] 8.2 mg/dL Critically low 8.4-10.2 [facility] Comment on above: Performed By: #### C BC #### [facility] [address] [place], [place] [id number] Jana Skylar Chloride [Moles/Vol] 106 mmol/L Normal 98-107 [facility] Comment on above: Performed By: #### C BC #### [facility] [address] [place], [place] [id number] Jana Skylar CO2 [Moles/Vol] 27.6 mmol/L Normal 22.0-30.0 [facility] Comment on above: Performed By: #### C BC #### [facility] [address] [place], [place] [id number] Jana Skylar Creatinine [Mass/Vol] 1.03 mg/dL Normal 0.66-1.25 [facility] Comment on above: Performed By: #### C BC #### [facility] [address] [place], [place] [id number] Jana Skylar EGFR-AF ANGUILLAN >60 Normal >=60 [facility] Comment on above: Performed By: #### C BC #### [facility] [address] [place], [place] [id number] Jana Skylar EGFR-NON AF ANGUILLAN >60 Normal >=60 [facility] Comment on above: Performed By: #### C BC #### [facility] [address] [place], [place] [id number] Jana Skylar Glucose [Mass/Vol] 120 mg/dL Critically high 74-106 [facility] Comment on above: Performed By: #### C BC #### [facility] [address] [place], [place] [id number] Jana Skylar Potassium [Moles/Vol] 3.8 mmol/L Normal 3.4-5.0 [facility] Comment on above: Performed By: #### C BC #### [facility] [address] [place] [address] Jana Skylar Sodium [Moles/Vol] 141 mmol/L Normal 137-145 [facility] Comment on above: Performed By: #### C BC #### [facility] [address] [place], [place] [id number] Jaan Skylar Urea nitrogen [Mass/Vol] 11.0 mg/dL Normal 9.0-20.0 [facility] Comment on above: Performed By: #### C BC #### [facility] [address] [place], [place] [id number] Jana Skylar Urea nitrogen/Creatinin e [Mass ratio] 10.7 mg/mg Normal [facility] Comment on above: Performed By: #### C BC #### [facility] [address] [place], [place] [id number] Jana Skylar RAPID COVID-19 ANTIGENon EUA Statement SEE BELOW Normal [facility] Comment on above: Result Comment: This test has not been FDA cleared or approved, but has been authorized by the FDA under an Emergency Use Authorization (EUA) for use by authorized laboratories certified under CLIA that meet the requirements to perform moderate or high complexity testing. This test has been authorized only for the detection of proteins from SARS-CoV-2, not for any other viruses or pathogens. The emergency use of this test is authorized for the duration of the declaration that circumstances exist justifying the authorization of emergency use of in vitro diagnostic tests for detection and/or diagnosis of Covid-19 under section 564(b)(1) of the Act, 21 U.S.C. 360bbb-3(b)(1), unless the declaration is terminated or authorization is revoked sooner. Performed By: #### C MARCELA #### [facility] [address] [place] [address] Jana Cheng SARS-CoV-2 (COVID-19) RNA TONIO+probe Ql (Unsp spec) Negative Normal NEGATIVE [facility] Comment on above: Result Comment: Nega tive results are presumptive. They do not preclude infection and should not be used as the sole basis for treatment decisions. Additional confirmatory testing by a molecular method should be considered. Performed By: #### C MARCELA #### [facility] [address] [place] [address] Jana Petersen CARDIAC LETTY ADMITon 021 CK [Catalytic activity/Vol] 109 U/L Normal 55-170 [facility] Comment on above: Performed By: #### L RAMA [place] #### [facility] [address] [place] [address] Jana Petersen CK.MB [Mass/Vol] 1.24 ng/mL Normal <=2.37 [facility] Comment on above: Performed By: #### L IPARAMA #### [facility] [address] [place] [address] Jana Cheng HSTROP 5.3 pg/mL Normal 4.0-42.2 [facility] Comment on above: Result Comment: CUT- OFF POINTS HAVE BEEN ESTABLISHED BASED ON THE FOURTH UNIVERSAL DEFINITIONS OF MYOCARDIAL INFARCTION. THE UPPER REFERENCE LIMIT (URL) OF TROPONIN, DEFINED THE 99TH PERCENTILE OF cTnI DISTRIBUTION IN A REFERENCE POPULATION, HAS BEEN CONFIRMED THE DECISION THRESHOLD FOR PA DIAGNOSIS. Performed By: #### L IPARAMA #### [facility] [address] [place], [place] [id number] Jana Skylar KELLI 48.0 ng/mL Normal <=121.0 [facility] Comment on above: Performed By: #### L IPA, CMADM #### [facility] [address] [place], [place] [id number] Jana Skylar CBC AUTO DIFFon 06-27-2020 BASO # 0.0 103/ul Normal 0.0-0.1 [facility] Comment on above: Performed By: #### C BC #### [facility] [address] [place] [address] Jana Skylar Basophils/100 WBC (Bld) 0.4 % Normal 0.2-2.0 [facility] Comment on above: Performed By: #### C BC #### [facility] [address] [place] [address] Jana Skylar EO # 0.2 103/ul Normal 0.0-0.7 [facility] Comment on above: Performed By: #### C BC #### [facility] [address] [place] [address] Jana Skylar Eosinophils/100 WBC (Bld) 2.1 % Normal 0.9-7.0 [facility] Comment on above: Performed By: #### C BC #### [facility] [address] [place] [address] Jana Skylar Erythrocyte distribution width (RBC) [Ratio] 13.1 % Normal 11.0-15.0 [facility] Comment on above: Performed By: #### C BC #### [facility] [address] [place] [address] Jana Skylar Hematocrit (Bld) [Volume fraction] 47.7 % Normal 42.0-54.0 [facility] Comment on above: Performed By: #### C BC #### [facility] [address] [place], [place] [id number] Ajna Skylar Hemoglobin (Bld) [Mass/Vol] 15.9 g/dL Normal 14.0-18.0 [facility] Comment on above: Performed By: #### C BC #### [facility] [address] [place] [address] Jana Skylar IG # 0.06 10e3/ul Critically high 0.00-0.03 [facility] Comment on above: Performed By: #### C BC #### [facility] [address] [place], [place] [id number] Jana Cheng IG % 0.8 % Critically high 0.0-0.5 [facility] Comment on above: Performed By: #### C BC #### [facility] [address] [place] [address] Janajack Cheng LYMPH # 1.9 103/ul Normal 1.2-3.8 [facility] Comment on above: Performed By: #### C BC #### [facility] [address] [place] [address] Jana Cheng Lymphocytes/100 WBC (Bld) 25.8 % Normal 20.5-60.0 [facility] Comment on above: Performed By: #### C BC #### [facility] [address] [place] [address] Jana Cheng MANUAL DIFF REQ NO Normal [facility] Comment on above: Performed By: #### C BC #### [facility] [address] [place] [address] Jana Cheng MCH (RBC) [Entitic mass] 29.1 pg Normal 25.9-34.0 [facility] Comment on above: Performed By: #### C BC #### [facility] [address] [place] [address] Jana Cheng MCHC (RBC) [Mass/Vol] 33.3 g/dL Normal 29.9-35.2 [facility] Comment on above: Performed By: #### C BC #### [facility] [address] [place] [address] Jana Cheng MCV (RBC) [Entitic vol] 87.2 fL Normal 80.0-94.0 [facility] Comment on above: Performed By: #### C BC #### [facility] [address] [place] [address] Jana Skylar MONO # 0.4 103/ul Normal 0.3-0.8 [facility] Comment on above: Performed By: #### C BC #### [facility] [address], [place] [address] Janajack Petersen Monocytes/100 WBC (Bld) 5.7 % Normal 1.7-12.0 [facility] Comment on above: Performed By: #### C BC #### [facility] [address] [place] [address] Jana Skylar NEUT # 4.7 103/ul Normal 1.4-6.5 [facility] Comment on above: Performed By: #### C BC #### [facility] [address] [place], [place] [id number] Janajack Cheng Neutrophils/100 WBC (Bld) 65.2 % Normal 43.0-75.0 [facility] Comment on above: Performed By: #### C BC #### [facility] [address] [place], [place] [id number] Jana Cheng Platelet mean volume (Bld) [Entitic vol] 10.0 fL Normal 9.5-13.5 [facility] Comment on above: Performed By: #### C BC #### [facility] [address] [place], [place] [id number] Jana Skylar PLT 280 103/ul Normal 150-450 [facility] Comment on above: Performed By: #### C BC #### [facility] [address] [place], [place] [id number] Jana Skylar RBC 5.47 106/ul Normal 4.70-6.10 [facility] Comment on above: Performed By: #### C BC #### [facility] [address] [place], [place] [id number] Jana Skylar WBC 7.2 103/ul Normal 4.0-11.0 [facility] Comment on above: Performed By: #### C BC #### [facility] [address] [place], [place] [id number] Janajack Petersen ER URINE PROFILEon 1 Bilirubin Ql (U) Negative Normal NEGATIVE [facility] Comment on above: Performed By: #### E RUR #### [facility] [address] [place] [address] Jana Skylar Clarity (U) CLEAR Normal CLEAR [facility] Comment on above: Performed By: #### E RUR #### [facility] [address] [place] [address] Jana Skylar Color (U) LT. YELLOW Normal YELLOW [facility] Comment on above: Performed By: #### E RUR #### [facility] [address] [place] [address] Jana Skylar ERUAHD A micrscopic examination will be performed if indicated. Normal [facility] Comment on above: Performed By: #### E RUR #### [facility] [address] [place] [address] Jana Skylar Glucose Ql (U) Negative Normal NEGATIVE [facility] Comment on above: Performed By: #### E RUR #### [facility] [address] [place] [address] Jana Skylar Hemoglobin Ql (U) Negative Normal NEGATIVE [facility] Comment on above: Performed By: #### E RUR #### [facility] [address] [place] [address] Jana Skylar Ketones Ql (U) Negative Normal NEGATIVE [facility] Comment on above: Performed By: #### E RUR #### [facility] [address] [place] [address] Jana Skylar LEUKOCYTES Negative Normal NEGATIVE [facility] Comment on above: Performed By: #### E RUR #### [facility] [address] [place] [address] Jana Skylar Nitrite Ql (U) Negative Normal NEGATIVE [facility] Comment on above: Performed By: #### E RUR #### [facility] [address] [place] [address] Jana Skylar pH (U) 7.5 [pH] Normal 5-9 [facility] Comment on above: Performed By: #### E RUR #### [facility] [address] [place] [address] Jana Skylar SPEC GRAVITY 1.015 Normal 1.005-<=1.025 [facility] Comment on above: Performed By: #### E RUR #### [facility] [address] [place], [place] [id number] Janajack Cheng UA PROTEIN Negative Normal NEGATIVE/ TRACE [facility] Comment on above: Performed By: #### E RUR #### [facility] [address] [place], [place] [id number] Jana Cheng UR MICRO IND NOT INDICATED Normal [facility] Comment on above: Performed By: #### E RUR #### [facility] [address] [place], [place] [id number] Janajack Cheng Urobilinogen Qn (U) 0.2 {Elver'U}/dL Normal 0.2 - 1.0 [facility] Comment on above: Performed By: #### E RUR #### [facility] [address] [place], [place] [id number] Jana Cheng LIPASEon 06-27-2020 Lipase [Catalytic activity/Vol] 320.0 U/L Critically high 23.0-300.0 [facility] Comment on above: Performed By: #### L IPA, CMADM #### [facility] [address] [place], [place] [id number] Jana Cheng PROF 14(COMP METB)on 021 Albumin [Mass/Vol] 4.3 g/dL Normal 3.5-5.0 [facility] Comment on above: Performed By: #### C BC #### [facility] [address] [place], [place] [id number] Janajack Cheng Albumin/Globulin [Mass ratio] 1.0 {ratio} Normal [facility] Comment on above: Performed By: #### C BC #### [facility] [address] [place], [place] [id number] Jana Skylar ALP [Catalytic activity/Vol] 89 U/L Normal 38-126 [facility] Comment on above: Performed By: #### C BC #### [facility] [address] [place], [place] [id number] Jana Skylar ALT [Catalytic activity/Vol] 38 U/L Normal 21-72 [facility] Comment on above: Performed By: #### C BC #### [facility] [address], [place] [address] Jana Skylar Anion gap [Moles/Vol] 8.6 mmol/L Normal [facility] Comment on above: Performed By: #### C BC #### [facility] [address], [place] [address] Jana Skylar AST [Catalytic activity/Vol] 17 U/L Normal 17-59 [facility] Comment on above: Performed By: #### C BC #### [facility] [address], [place] [address] Jana Skylar Bilirubin [Mass/Vol] 0.6 mg/dL Normal 0.2-1.3 [facility] Comment on above: Performed By: #### C BC #### [facility] [address] [place] [id number] Jana Skylar Calcium [Mass/Vol] 8.8 mg/dL Normal 8.4-10.2 [facility] Comment on above: Performed By: #### C BC #### [facility] [address] [place] [id number] Jana Skylar Chloride [Moles/Vol] 102 mmol/L Normal 98-107 [facility] Comment on above: Performed By: #### C BC #### [facility] [address] [id number] Jana Skylar CO2 [Moles/Vol] 29.2 mmol/L Normal 22.0-30.0 [facility] Comment on above: Performed By: #### C BC #### [facility] [address] [id number] Jana Skylar Creatinine [Mass/Vol] 1.00 mg/dL Normal 0.66-1.25 [facility] Comment on above: Performed By: #### C BC #### [facility] [address] [id number] Jana Skylar EGFR-AF ANGUILLAN >60 Normal >=60 [facility] Comment on above: Performed By: #### C BC #### [facility] [address] [id number] Jana Skylar EGFR-NON AF ANGUILLAN >60 Normal >=60 [facility] Comment on above: Performed By: #### C BC #### [facility] [address] [place], [place] [id number] Jana Skylar Globulin (S) [Mass/Vol] 4.1 g/dL Normal [facility] Comment on above: Performed By: #### C BC #### [facility] [address] [place], [place] [id number] Jana Skylar Glucose [Mass/Vol] 133 mg/dL Critically high 74-106 [facility] Comment on above: Performed By: #### C BC #### [facility] [address] [place] [address] Jana Skylar Potassium [Moles/Vol] 3.8 mmol/L Normal 3.4-5.0 [facility] Comment on above: Performed By: #### C BC #### [facility] [address] [place] [address] Jana Skylar Protein [Mass/Vol] 8.4 g/dL Critically high 6.1-8.2 [facility] Comment on above: Performed By: #### C BC #### [facility] [address] [place], [place] [id number] Jana Skylar Sodium [Moles/Vol] 136 mmol/L Critically low 137-145 Th [facility] Comment on above: Performed By: #### C BC #### [facility] [address] [place] [address] Jana Skylar Urea nitrogen [Mass/Vol] 16.0 mg/dL Normal 9.0-20.0 [facility] Comment on above: Performed By: #### C BC #### [facility] [address] [place], [place] [id number] Jana Skylar Urea nitrogen/Creatinin e [Mass ratio] 16.0 mg/mg Normal [facility] Comment on above: Performed By: #### C BC #### [facility] [address] [place], [place] [id number] Jana Skylar TROPONIN, HIGH SENSITIVITYon 06-27-2020 HSTROP 4.6 pg/mL Normal 4.0-42.2 [facility] Comment on above: Result Comment: CUT- OFF POINTS HAVE BEEN ESTABLISHED BASED ON THE FOURTH UNIVERSAL DEFINITIONS OF MYOCARDIAL INFARCTION. THE UPPER REFERENCE LIMIT (URL) OF TROPONIN, DEFINED THE 99TH PERCENTILE OF cTnI DISTRIBUTION IN A REFERENCE POPULATION, HAS BEEN CONFIRMED THE DECISION THRESHOLD FOR PA DIAGNOSIS. Performed By: #### C BC #### [facility] [address] [address] Jana Cheng XR CHEST 2 Von 06-27-2020 XR CHEST 2 V EXAMINATION: XR CHES T 2 V HISTORY: CHEST PAIN, UNSPECIFIED COMPARISON: No relevant comparison available. FINDINGS: LUNGS: No significant pulmonary parenchymal abnormalities. VASCULATURE: No increased pulmonary vasculature. PLEURA: No pneumothorax, effusion, or pleural thickening. CARDIAC: No cardiomegaly or cardiac silhouette abnormality. MEDIASTINUM: No visible mass or adenopathy. BONES: No fracture or visible bone lesion. OTHER: Negative. IMPRESSION: 1. No acute cardiopulmonary process. Electronically authenticated by: OLIVER KRAMER Date: 2020-06-27 09:52 Normal [facility] Vital Signs Date Time Vital Sign Value Performing Clinician Facility 05-08-2024 13:24-0500 Blood Pressure Location Milagros SOLORZANO [facility] [place] 05-08-2024 13:24-0500 Diastolic blood pressure 88 mm[Hg] Milagros SOLORZANO [facility] [place] 05-08-2024 13:24-0500 Heart rate 72 /min Milagros SOLORZANO [facility] [place] 05-08-2024 13:24-0500 Respiratory rate 16 /min Milagros SOLORZANO [facility] [place] 05-08-2024 13:24-0500 Systolic blood pressure 126 mm[Hg] Milagros SOLORZANO [facility] [place] 04-18-2024 11:02-0500 Body height 185.4 cm Kiran Fletcher MD Work Phone: [facility] 04-18-2024 11:02-0500 Body mass index (BMI) [Ratio] 42.61 kg/m2 Kiran Fletcher MD Work Phone: [facility] 04-18-2024 11:02-0500 Body temperature 97.5 [degF] Kiran Fletcher MD Work Phone: [facility] 04-18-2024 11:02-0500 Body weight 146.51 kg Kiran Fletcher MD Work Phone: [facility] 04-18-2024 11:02-0500 Diastolic blood pressure 66 mm[Hg] Kiran Fletcher MD Work Phone: [facility] 04-18-2024 11:02-0500 Heart rate 77 /min Kiran Fletcher MD Work Phone: [facility] 04-18-2024 11:02-0500 Respiratory rate 22 /min Kiran Fletcher MD Work Phone: [facility] 04-18-2024 11:02-0500 SaO2% (BldA) [Mass fraction] 98 % Kiran Fletcher MD Work Phone: [facility] 04-18-2024 11:02-0500 Systolic blood pressure 124 mm[Hg] Kiran Fletcher MD Work Phone: [facility] 10-11-2023 08:13-0400 Diastolic blood pressure 90 mm[Hg] Jacquesdanii Dallas [employer]LECTRONICS COMPUTER MECHANIC-REPAIR DEPARTMENT SUPERVISOR Work Phone: [facility] 10-11-2023 08:13-0400 Heart rate 82 /min Jacques Nimesha ELECTRONICS COMPUTER MECHANIC-REPAIR DEPARTMENT SUPERVISOR Work Phone: [facility] 10-11-2023 08:13-0400 Respiratory rate 20 /min Jacques Rondaenberg ELECTRONICS COMPUTER MECHANIC-REPAIR DEPARTMENT SUPERVISOR Work Phone: [facility] 10-11-2023 08:13-0400 SaO2% (BldA) [Mass fraction] 98 % Jacquesdanii Dallas ELECTRONICS COMPUTER MECHANIC-REPAIR DEPARTMENT SUPERVISOR [facility] 10-11-2023 08:13-0400 Systolic blood pressure 145 mm[Hg] Jacques Bondmesha ELECTRONICS COMPUTER MECHANIC-REPAIR DEPARTMENT SUPERVISOR [facility] 08-30-2023 08:24-0400 Body height 185.4 cm Peewee Burt PA [facility] 08-30-2023 08:24-0400 Body mass index (BMI) [Ratio] 41.96 kg/m2 Peewee Burt PA Work Phone: [facility] 08-30-2023 08:24-0400 Body weight 144.24 kg Peewee Bondmesha PA Work Phone: [facility] 08-30-2023 08:24-0400 Diastolic blood pressure 105 mm[Hg] Peewee Bondmesha PA [facility] 08-30-2023 08:24-0400 Heart rate 69 /min Peewee Bondmesha PA Work Phone: [facility] 08-30-2023 08:24-0400 Respiratory rate 20 /min Peewee Bondenberg PA Work Phone: [facility] 08-30-2023 08:24-0400 Systolic blood pressure 148 mm[Hg] Peewee Bondenberg PA Work Phone: [facility] [place] [employer] Encounters Encounter Date Encounter Type Care Provider Facility Start: 05-08-2024 End: 05-08-2024 ambulatory Milagros SOLORZANO Facility:[facility] Start: 05-08-2024 End: 05-08-2024 Patient encounter procedure Milagros SOLORZANO [facility] [place] Start: 04-18-2024 End: 04-18-2024 Yennifer Fletcher MD Work Phone: [facility] Start: 04-18-2024 End: 04-18-2024 Yennifer Beck Naderer MD Work Phone: [facility] Start: 04-18-2024 End: 04-18-2024 ambulatory KIRAN FLETCHER Not Available Start: 04-18-2024 End: 04-18-2024 Patient encounter procedure Kiran Fletcher MD Work Phone: [facility] Start: 04-18-2024 End: 04-18-2024 Periodic preventive med est patient 40-64yrs Kiran Fletcher MD Work Phone: [facility] Comment on above: Annual physical exam (Primary Dx); History of colon polyps; Class 3 severe obesity due to excess calories without serious comorbidity with body mass index (BMI) of 40.0 to 44.9 in adult ([facility] Start: 11-29-2023 End: 11-29-2023 Orders Only Antonella Gonzales [facility] Start: 10-11-2023 End: 11-02-2023 Telephone encounter Jacques Dallas ELECTRONICS COMPUTER MECHANIC-REPAIR DEPARTMENT SUPERVISOR Work Phone: [facility] Start: 10-11-2023 End: 10-11-2023 ambulatory [facility] Start: 10-11-2023 End: 10-11-2023 Office outpatient visit 15 minutes Jacques Dallas ELECTRONICS COMPUTER MECHANIC-REPAIR DEPARTMENT SUPERVISOR Work Phone: [facility] Comment on above: 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) Start: 09-20-2023 End: 09-20-2023 ambulatory [facility] Start: 09-02-2023 End: 09-02-2023 Telephone encounter Ashlie Cheng C[facility] Comment on above: Attribution Outreach Start: 08-30-2023 End: 08-30-2023 Office outpatient visit 15 minutes Peewee Dallas PA Work Phone: [facility] Comment on above: Lumbosacral spondylo sis without myelopathy (Primary Dx); Disc displacement, lumbar; Lumbar radiculopathy, chronic Start: 08-30-2023 End: 08-30-2023 ambulatory PEEWEE DALLAS [facility] Start: 07-27-2023 End: 07-27-2023 ambulatory SHAIKH DINH Not Available Start: 07-09-2023 End: 07-10-2023 Emergency department patient visit CHERELLE VidalCara BILLINGS [facility] Start: 06-20-2023 End: 06-20-2023 Telephone encounter Ashlie Cheng [facility] Comment on above: attribution outreach Start: 08-12-2020 End: 08-14-[address] LETTY BRAVO Facility:[facility] Start: 06-27-2020 End: 06-27-[address] OLIVER KRAMER Facility:[facility] Procedures Date Procedure Procedure Detail Performing Clinician Start: 10-11-2023 Follow-up visit Follow-up QUENTIN DALLAS Start: 09-25-2020 Colonoscopy Ashlie aguilar [facility] Start: 09-25-2020 Colonoscopy Milagros CAMPBELL Arthroscopy of knee Milagros SOLORZANO Colonoscopy Milagros SOLORZANO Repair of meniscus Milagros JEFFRIES Plan of Treatment Date Care Activity Detail Author Start: 09-25-2025 Screening for malign ant neoplasm of colon Colonoscopy [facility] Start: 10-10-2024 Tobacco Screening Tobacco Screening [facility] Start: 08-29-2024 Adult BMI Screening Adult BMI Screen ing [facility] Start: 08-29-2024 Tobacco Screening Tobacco Screening [facility] Start: 04-18-2024 End: 04-18-2025 Basic metabolic 1998 panel - Serum or Plasma Basic metabolic panel Lab Routine Annual physical exam Expected: 04/18/2024 (Approximate), Expires: 04/18/2025 [facility] Comment on above: Expected: 04/18/2024 (Approximate), Expires: 04/18/2025 Start: 04-18-2024 End: 04-18-2025 CBC W Auto Differential panel - Blood CBC and differential Lab Routine Annual physical exam Expected: 04/18/2024 (Approximate), Expires: 04/18/2025 [facility] Comment on above: Expected: 04/18/2024 (Approximate), Expires: 04/18/2025 Start: 04-18-2024 End: 04-18-2025 Hemoglobin A1c/Hemoglobin.total in Blood Hemoglobin A1c Lab Routine Annual physical exam Expected: 04/18/2024 (Approximate), Expires: 04/18/2025 [facility] Work Phone: Comment on above: Expected: 04/18/2024 (Approximate), Expires: 04/18/2025 Start: 04-18-2024 End: 04-18-2025 Hepatic function 2000 panel - Serum or Plasma Hepatic function panel Lab Routine Annual physical exam Expected: 04/18/2024 (Approximate), Expires: 04/18/2025 [facility] Comment on above: Expected: 04/18/2024 (Approximate), Expires: 04/18/2025 Start: 04-18-2024 End: 04-18-2025 Lipid 1996 panel - Serum or Plasma Lipid panel Lab Routine Annual physical exam Expected: 04/18/2024 (Approximate), Expires: 04/18/2025 [facility] Comment on above: Expected: 04/18/2024 (Approximate), Expires: 04/18/2025 Start: 04-18-2024 End: 04-18-2025 Prostate specific Ag [Mass/volume] in Serum or Plasma PSA Lab Routine Annual physical exam Expected: 04/18/2024 (Approximate), Expires: 04/18/2025 [facility] Comment on above: Expected: 04/18/2024 (Approximate), Expires: 04/18/2025 Start: 04-18-2024 End: 04-18-2025 Thyrotropin [Units/volume] in Serum or Plasma TSH Lab Routine Annual physical exam Expected: 04/18/2024 (Approximate), Expires: 04/18/2025 [facility] Comment on above: Expected: 04/18/2024 (Approximate), Expires: 04/18/2025 Start: 11-06-2023 Influenza vaccination [facility] Start: 10-02-2021 Adult BMI Screening [facility] Screen ing [facility] Start: 11-19-1999 DTaP,Tdap and Td Vaccines (1 - Tdap) DTaP,Tdap and Td Vaccines (1 - Tdap) [facility] Start: 1998 Adult BMI Follow Up Plan Adult BMI Follow Up Plan [facility] Start: 1992 Depression Screening [facility] Scre [facility]ing [facility] Start: 1992 Tobacco Screening [facility]ening [facility] Start: 1980 Tobacco Counseling Tobacco Counselin g [facility] End: 08-29-2024 MR Lumbar spine WO contrast MR lumbar spine without contrast Imaging Routine Lumbar radiculopathy, chronic 1 Occurrences starting 08/30/2023 until 08/29/2024 [employer] Work Phone: Comment on above: 1 Occurrences starti ng 08/30/2023 until 08/29/2024 Njx anes&/strd w/img tfrml edrl lmbr/sac 1 lvl INJECTION SPINE TRANSFORAMINAL Intervertebral disc disorder with radiculopathy of lumbar region [facility] Payers Date Payer Category Payer Medicaid (Managed Care) [employer] [id number] 2017 Medicaid [employer] [id number] 2017-Present [phone] [address] [place] [id number] 1980 Unknown [id number] 593 1980 Unknown [id number]. 593 1980 Unknown [id number]. 6 1980 Unknown [id number]. 1285 1980 Unknown [id number]. 1285 1980 Unknown [id number]. 1285 1980 Unknown [id number]. 6 1980 Unknown [id number]. 9 1980 Unknown [id number]. 9 1980 Unknown [id number] 727 1959 Unknown [id number] Social History Date Type Detail Facility Start: 07-27-2023 End: 05-08-2024 Tobacco smoking status NHIS Ex-smoker [facility] End: 08-04-2022 History of tobacco use Current smoker [facility] End: 08-04-2022 History of tobacco use Cigarette Smoker [facility] History of tobacco use Passive smoker [facility] Start: 07-27-2023 Tobacco use and exposure User of smokeless tobacco [facility] History of tobacco use Chews Tobacco [facility] Start: 07-27-2023 End: 04-18-2024 Alcoholic beverage intake Ex-drinker (finding) [facility] Start: 04-17-2020 End: 04-18-2024 History of Social function [facility] Start: 04-17-2020 End: 04-18-2024 Tobacco use panel [facility] Start: 08-18-2022 Alcohol Comment Caffine intake : 2-3 cups per day [facility] Start: 1980 Sex assigned at Not on file P [facility] Start: 07-09-2023 [facility] Start: 09-17-2020 End: 07-09-2023 Tobacco use and exposure Former smokeless tobacco user [facility] Start: 08-30-2023 End: 10-11-2023 Alcoholic beverage intake Current non-drinker of alcohol (finding) [facility] Childcare Unknown [facility] Functional Status Date Assessment Result Facility 05-08-2024 Functional Status N/A [facility] [place] Clinical Notes 08-12-2020 to 05-08-2024 Kiran Fletcher MD - 04/18/2024 11:22 AM Holli Fletcher MD - 04/18/2024 11:21 AM Holli Fletcher MD - 04/18/2024 11:21 AM Holli Fletcher MD - 04/18/2024 10:45 AM ESTPatient Instructions Note Date & Type Note Facility 05-08-2024 Note General Surgery Offi ce/Clinic Note Chief Complaint consultation for colonscopy HPI Staff 43 year old male presents on consultation from Dr. Fletcher for surveillance colonoscopy. Last colonoscopy completed 09/2020 with sessile serrated polyp and hyperplastic polyps. No known family history of colon cancer. Denies abdominal or rectal pain. No rectal bleeding or change in bowel habits. Denies nausea or vomiting. No unexplained weight loss. History of Present Illness 43 yo male with h/o lumbar stenosis, IBS, diverticulosis, referred for surveillance colonoscopy; denies changed in bms or blood in stools, no abd complaints; last colonoscopy 09/2020 with removal of sessile serrated lesion at hepatic flexture and multiple hyperplastic polyps removed from sigmoid and rectum; no abd operations; no asa or NSAID use; no tobacco use; no fmhx of GI malignancy or IBD. Review of Systems PHQ Score Initial Depression Screen Score: 0 SCORE ROS - Provider Constitutional: no fever, no sweats, no weight loss. Eyes: no glasses, no blurred vision, no visual loss. ENMT: no dentures, no hoarseness, no swallowing difficulties, no hearing loss, no ear infection(s), no nose bleeds. Cardiovascular: normal blood pressure, no chest pain, regular heartbeat, no heart murmur. Respiratory: no shortness of breath, no cough, no asthma, no wheezing. Gastrointestinal: no nausea, no vomiting, no diarrhea, no constipation, no blood in stool, no change in bowel habits, no abdominal pain, no hepatitis. Genitourinary: no kidney stones, no urine infection, no dysuria. Musculoskeletal: no pain, no weakness. Skin: no changing moles, no rash, no skin lumps. Neurologic: no seizures, no epilepsy, no headache. Psychiatric: no emotional or psychiatric problem. Heme/Lymph: no bleeding problems, no anemia, no blood clots, no transfusions. Allergy/Immunologic: no swollen lymph nodes/glands, no IV drug abuse. Other: Additional ROS info: Except as noted in the above Review of Systems and in the History of Present Illness, all other systems have been reviewed and are negative or noncontributory. Physical Exam Vitals & Measurements HR: 72(Peripheral) RR: 16 BP: 126/88 HT: 73 in HT: 185.4 cm WT: 144.7 kg WT: 319.009 lb BMI: 42.1 HEENT: normal conjunctiva, sclera clear, no scleral icterus, EOM intact, PERRLA, oral mucosa moist without lesions. Neck: trachea midline, no mass, symmetric, no thyromegaly or nodules, no adenopathy Respiratory: lungs CTA, respirations non labored. Cardiovascular: regular rate and rhythm, no murmur, no pedal edema or varicosities. Gastrointestinal: obese, soft, non distended, no tenderness, no masses, no palpable hernias, diastasis recti no, no hepatosplenomegaly; normal bs Lymphatic: no cervical adenopathy, no supraclavicular adenopathy. Musculoskeletal: normal gait, digits and nails without infection, nodes, cyanosis, clubbing. Skin: no rashes, no lesions, no ulcers, no subcutaneous nodules, induration. Psychiatric/Neuro: oriented to time, place, person, judgement normal, affect appropriate for age, insight intact, no focal deficits. Tests: review of old records completed , Discussed surgical options, risks, and possible complications with patient. Assessment/Plan 1. Personal history of adenomatous and serrated colon polyps (Z86.0101: Personal history of adenomatous and serrated colon polyps) plan colonoscopy under anesthesia, informed consent obtained. Follow-up No qualifying data available Problem List/Past Medical History Ongoing BMI 40.0-44.9, adult Class 3 obesity Diverticulosis IBS (irritable bowel syndrome) Lumbar stenosis Personal history of adenomatous and serrated colon polyps Historical No qualifying data Procedure/Surgical History Colonoscopy (09/25/2020), Arthroscopy of knee, Colonoscopy, Meniscal repair. Medications No active medications Allergies No Known Allergies No Known Medication Allergies Social History Alcohol Never., 05/08/2024 Substance Abuse Current, Marijuana, Daily, 05/08/2024 Tobacco Former smoker, quit more than 30 days ago Tobacco Use:. Former smokeless tobacco user, quit more than 30 days ago Smokeless Tobacco Use:. Cigarettes, Oral, 0.5 per day. Started age 17.0 Years., 05/08/2024 Family History Family history is negative [facility] Comment on above: Result Comment: Elec tronically Signed By: RASHAD DIEZ, Milagros Sargent\Date and Time Signed: 05/08/24 13:42 EST 04-18-2024 History of Presen t illness Narrative Associated Problem(s): Class 3 severe obesity due to excess calories without serious comorbidity with body mass index (BMI) of 40.0 to 44.9 in adult ([facility]) Discussed proper diet and regular aerobic exercise. Recommend Weight Watchers and need to limit calories and smaller portions. Need to increase activity and regular aerobic exercise several days a week for 30 minutes at a time. Associated Problem(s): History of colon polyps Prior polyp and due for repeat scope. Refer to surgeon. Associated Problem(s): Annual physical exam Due for labs. Discussed proper diet and regular aerobic exercise. Need aerobic exercise 5-6 days a week for 30 minutes at a time. Smaller portions and limit total calories. Tetanus every 10 years. Advised not to smoke. Subjective Patient ID: Leo Hameed is a 43 y.o. male who presents for Annual Exam (wellness). Presents for annual PE. Patient feels well today. Weight up 10 pounds since last visit. Started to exercise and goes to the gym several days a week. Tries to watch diet and eat healthy. Increased fruits and vegetables. Smaller portions and limits snacking. Tries to limit total daily calories. Due for labs. Prior colonoscopy 09/25/2020 and found a polyp. Told need repeat procedure in 3-4 years. Review of Systems Constitutional: Negative for fatigue. Respiratory: Negative for cough, shortness of breath and wheezing. Cardiovascular: Negative for chest pain and palpitations. Gastrointestinal: Negative for abdominal pain, diarrhea, nausea and vomiting. Genitourinary: Negative for dysuria. Objective Physical Exam Constitutional: General: He is not in acute distress. Appearance: Normal appearance. HENT: Head: Normocephalic. Right Ear: Tympanic membrane and ear canal normal. Left Ear: Tympanic membrane and ear canal normal. Eyes: Extraocular Movements: Extraocular movements intact. Pupils: Pupils are equal, round, and reactive to light. Cardiovascular: Rate and Rhythm: Normal rate and regular rhythm. Heart sounds: No murmur heard. No friction rub. No gallop. Pulmonary: Breath sounds: Normal breath sounds. No wheezing, rhonchi or rales. Abdominal: General: Bowel sounds are normal. There is no distension. Palpations: Abdomen is soft. Tenderness: There is no abdominal tenderness. There is no guarding or rebound. Musculoskeletal: General: Normal range of motion. Left lower leg: No edema. Neurological: General: No focal deficit present. Mental Status: He is alert. Cranial Nerves: No cranial nerve deficit. Deep Tendon Reflexes: Reflexes normal. Assessment/Plan Problem List Items Addressed This Visit Annual physical exam - Primary Due for labs. Discussed proper diet and regular aerobic exercise. Need aerobic exercise 5-6 days a week for 30 minutes at a time. Smaller portions and limit total calories. Tetanus every 10 years. Advised not to smoke. Relevant Orders Hemoglobin A1c Basic metabolic panel CBC and differential Hepatic function panel Lipid panel PSA TSH History of colon polyps Prior polyp and due for repeat scope. Refer to surgeon. Relevant Orders Ambulatory referral to General Surgery documented in this encounter [facility] 10-11-2023 Miscellaneous Notes Received denial letter for left L 4,5 nerve root stating there is no clear documentation that the patient has completed and failed 4 weeks of PT/HEP/Chiro. Called patient to get therapy notes from June 2023. Agree please submit PT notes. Thanks! Received PT notes. Patient only went to 2 visits. Frequency ordered was 3 times a week, for 4 weeks. How do you want to proceed? documented in this encounter [facility] 10-11-2023 Telephone encounter Note Received denial letter for left L 4,5 nerve root stating there is no clear documentation that the patient has completed and failed 4 weeks of PT/HEP/Chiro. Called patient to get therapy notes from June 2023. [facility] 10-11-2023 Telephone encounter Note Agree please submit PT notes. Thanks! [facility] Work Phone: 10-11-2023 Telephone encounter Note Received PT notes. Patient only went to 2 visits. Frequency ordered was 3 times a week, for 4 weeks. How do you want to proceed? [facility] 10-11-2023 History of Presen t illness Narrative [facility] [address] [place] [place] [address] Patient: Leo Hameed Sex: male : 1980 Age: 42 y.o. PCP: KIRAN FLETCHER MD 10/11/2023 Leo Hameed is here for a follow up to review lumbar spine MRI results. He reports his worst pain is the pain down his left leg. Patient reports going to ER on 09/15/2023 due to increased pain as a result of increased physical activity. He was prescribed ibuprofen, zofran, percocet, colace and reports relief with the medications. Chief Complaint Patient presents with Back Pain Follow-up HPI: June 2023 Physical therapy done at [facility] with no relief June 2023 Chiropractor visits no relief Continue HEP and TENS with little help Back Pain This is a chronic problem. Episode onset: December 2022. The problem occurs constantly. The problem is unchanged. The pain is present in the lumbar spine. The quality of the pain is described as cramping, aching, shooting, stabbing and burning. The pain radiates to the left thigh, left foot and left knee (left buttocks, thigh, calf, foot, heel). The pain is at a severity of 8/10 (5/10 currently and has increased to 8/10 recently with activity and weather related). The pain is moderate. Worse during: varies depends on what he is doing, moving around. Exacerbated by: sitting, stairs, bending, lifting, lying, twisting, cough/sneeze. Stiffness is present: varies, sitting too long. Associated symptoms include leg pain (left leg from buttocks down leg) and numbness (left calf, left big toe). Pertinent negatives include no chest pain, fever or weakness. Treatments tried: Heat, biofreeze, lidocaine, Flexeril, MDP, high dose oral prednisone, Ibuprofen, Gabapentin, tylenol with minimal relief; ice with moderate relief; TENs unit with worsening relief. The effect of pain on patient's ADLS: Moderate Impairment. Past Medical History: Diagnosis Date Hypertension won't take pills for it Joint pain Low back pain Past Surgical History: Procedure Laterality Date COLONOSCOPY 2008 COLONOSCOPY N/A 09/25/2020 Performed by Milagros Arguelles DO at [facility] 3 VIEWS No Known Allergies History reviewed. No pertinent family history. Social History Socioeconomic History Marital status: Single Spouse name: Not on file Number of children: Not on file Years of education: Not on file Highest education level: Not on file Occupational History Not on file Tobacco Use Smoking status: Every Day Current packs/day: 0.00 Types: Cigarettes Last attempt to quit: 2000 Years since quittin.6 Smokeless tobacco: Former Substance and Sexual Activity Alcohol use: No Drug use: Yes Frequency: 7.0 times per week Types: Marijuana Sexual activity: Defer Other Topics Concern Not on file Social History Narrative Not on file Social Determinants of Health Financial Resource Strain: Not on file Food Insecurity: No Food Insecurity (10/11/2023) Hunger Screening Food Insecurity - Worry: Never True Food Insecurity - Inability: Never True Transportation Needs: Not on file Physical Activity: Not on file Stress: Not on file Social Connections: Not on file Interpersonal Safety: Not on file Housing Instability: Not on file Review of Systems Constitutional: Negative. Negative for chills, fatigue and fever. HENT: Negative. Eyes: Negative. Respiratory: Negative. Negative for cough and shortness of breath. Cardiovascular: Negative. Negative for chest pain and palpitations. Gastrointestinal: Negative. Endocrine: Negative. Genitourinary: Negative. Musculoskeletal: Positive for back pain. Allergic/Immunologic: Negative. Neurological: Positive for numbness (left calf, left big toe). Negative for weakness. Hematological: Negative. Psychiatric/Behavioral: Negative. Vital Signs: BP 145/90 (BP Site: Right Arm, BP Postition: Sitting) Pulse 82 Resp 20 SpO2 98% Physical Exam: GENERAL - Healthy patient that appears stated age. HEENT - Normocephalic / Atraumatic, Extraoccular movements intact, trachea midline, thyroid within normal limits. CV - pulse regular, Warm extremities with appropriate color of nailbeds. RESP - No obvious wheezing, No Shortness of Breath, No overexertion response to exam maneuvers. COORDINATION - remains intact. PSYCH - Alert and Oriented x4, Attentive and appropriate, constitutionally normal, displays normal mood and affect per situation, answered questions appropriately during examination, demonstrated appropriate attention during discussion, demonstrated appropriate cognitive reasoning and understanding of the medical condition by asking appropriate questions regarding the diagnosis and risks/benefits/alternatives of treatment modalities. No obvious deficits in memory, reasoning, or intellect. Lumbar: SKIN - No rashes or bruising in the area of the patient s pain. LYMPH NODES - demonstrate no obvious enlargement. EXTREMITIES - Lower extremities are warm, with minimal edema and palpable pulses. Tenderness to palpation noted in the lumbar spine and paraspinal musculature. Pain is elicited with flexion, extension, and lateral rotation of the lumbar spine. Range of motion is diminished with these motions due to pain. Facet palpation is noted to be somewhat tender and facet loading maneuvers are mildly positive, but not concordant with the patient s normal pain complaints. STRENGTH - noted to be 5 out of 5 all muscle groups bilateral lower extremities including muscles involving hip flexion and abduction, knee flexion and extension, as well as foot dorsiflexion and plantarflexion. No notable atrophy, fasciculations or spasm. SENSORY - No notable sensory deficits in the bilateral lower extremities to touch or pinprick in all dermatomal distributions with exception to increased sensation in the Left L4 and L5 levels. Straight Leg Raise is Positive on the Left Gait is normal. Assessment/Treatment Plan: Buck was seen today for back pain and follow-up. Diagnoses and all orders for this visit: Intervertebral disc disorder with radiculopathy of lumbar region - Case request operating room: INJECTION SPINE TRANSFORAMINAL LEFT L4, L5 NERVE ROOT INJ Left L4, 5 Nerve Root Injection - under fluoroscopy with the use of contrast dye (unless contraindicated) It is hopeful that the described procedure will provide symptomatic pain relief. It is felt to be medically necessary noting that the patient has tried and failed more conservative modalities of therapy and this is the next most appropriate step. The procedure was described in detail to the patient as well as the potential benefits of pain reduction alongside risks of the procedure and alternatives. Risks were described as including, but not limited to bleeding, infection, nerve damage, spinal cord injury, paralysis, stroke, dural puncture headache, and medication reaction. The patient expressed understanding regarding the risks and benefits and wishes to proceed. It was explained that Nerve Root Injections and Transforaminal Epidural Injections often require a series of 2-3 before significant relief is noted, but we will determine after each injection if another one is indicated. Depending on the amount and duration of relief obtained from the injection, additional modalities of therapy including medications and physical therapy may need to be utilized alongside or following the injections. Follow up 2 weeks after procedure The medications prescribed have been reviewed for medication interactions/contraindications and/or for upcoming procedures: continue current medication regimen without any changes. DISCUSSION: Treatment options discussed with patient and all questions answered to patient's satisfaction. Discussed the rules and regulations surrounding prescription of opioids and compliance at length. Failure to follow the rules and regulation will result in tapering and discontinuation of medications if applicable. Prescribed medication that requires intensive monitoring for toxicity We do not currently prescribe any controlled substance from this practice. The spine model was demonstrated and MRI was reviewed and used to explain the condition. Chronic conditions not treated during this visit that affected my overall medical decision making: Comorbidity- Obesity The patient does have a comorbid condition of obesity. This will be taken into account in that obesity will contribute to certain pain conditions. It can contribute to pain from degenerative disc disease as well as osteoarthritis of the joints. Many neuropathic symptoms are also amplified due to axial spine loading. Special benefits will also need to be given to procedures. Many procedures are technically more difficult in the light of severe obesity. I will also consider the possibility of undiagnosed obstructive sleep apnea (which often accompanies obesity) when prescribing any narcotic medications. I will weigh the risks and benefits and fully discuss them with the patient for these reasons. OARRS: Reviewed. Scribe Statement: Scribed for and in the presence of JOE BURKS by Jessie Kern CNA. Provider Statement: I, JOE BURKS, personally performed the services described in the documentation, as scribed by Jessie Kern CNA in my presence, and it is both accurate and complete. Jessie Kern CNA 10/11/23 0843 JOE Burks 10/11/23 1126 documented in this encounter [facility] [employer] 10-11-2023 Instructions Jessie Kern CNA - 10/11/2023 7:45 AM EDT Epidural Steroid Injection (SYLVESTER) / Nerve Root Injection / Nerve Block These procedure(s) involve the injection of a steroid and anesthetic into the epidural space or the nerve sheath that is both diagnostic and potentially therapeutic for alleviating discomfort of the legs and arms secondary to compression of the respective nerves due to bulging discs, bone spurs and other potential causes. Steroids are potent anti-inflammatory drugs that act to decrease the swollen and inflamed nerves thus relieving your clinical symptoms. How Long Will This Procedure Last? The extent and duration of pain relief may depend on the amount of inflammation and how many areas are involved. Other coexisting factors may be responsible for your pain. You and your physician will discuss expected results of procedure(s). After Your Injection You may experience soreness and tenderness at the area of treatment. This pain may not occur until later today after the numbing medicine wears off. The steroid can take 3-5 days to work and provide noticeable improvement. Activity You may feel temporary numbness, weakness or tingling: In the neck, arm, or fingertips (if your procedure was done in your neck) In the legs (if your procedure was done in your lower back) These symptoms are normal, and should subside within 3-4 hours. In that time, be careful to avoid falls. As a safety precaution, you must have a racing car driver after a lumbar nerve root injection, even if you do not receive sedation. Resume activity as tolerated when function has returned. Medications Resume your routine medications after your procedure. You may resume blood thinners per your regular schedule after the procedure. If you received sedation: If you received sedation for your procedure, you may feel sleepy or not yourself for several hours today. For the next 24 hours avoid activities that requires alertness or coordination. This includes: Driving or operating heavy machinery Using power tools Consuming alcohol Do not make important or complex decisions or sign legal documents in the next 24 hours. Other Instructions: If you feel severe pain at the injection site with swelling and redness, increased leg weakness, a fever of 101 or higher, headache (or worsening headache), changes in vision or urinary retention: Please call the office at , or have someone take you to the nearest emergency room. Tell the emergency room staff that you recently had a spine injection. A doctor must evaluate you for bleeding and injection complications. If you lose control over bowel, bladder, or legs: Go to the nearest emergency room. If you are diabetic, the steroids used in this procedure can increase your blood sugar. If your blood sugar is 250mg/dL or higher, contact your primary care physician, or the doctor who manages your diabetes, to discuss how to get it back to normal. documented in this encounter [facility] 09-02-2023 Miscellaneous Notes EMPANELMENT OUTREACH Leo Hameed has been contacted in effort to establish and/or re-establish care as a new patient with [facility]: Yes Outreach Date: September 02, 2023 Outreach Reason: Attribution Outreach Method: Telephone Outreach Attempt: Second Attempt Outreach Outcome: Left Message New Patient Appointment: NA Attributed Provider: Dr. Tony Shah Additional Comments: PCP is not accepting new patients. Unable to reach patient by telephone. Letter sent regarding how to establish care. documented in this encounter [facility] 09-02-2023 Telephone encounter Note EMPANELMENT OUTREACH Leo Hameed has been contacted in effort to establish and/or re-establish care as a new patient with [facility]: Yes Outreach Date: September 02, 2023 Outreach Reason: Attribution Outreach Method: Telephone Outreach Attempt: Second Attempt Outreach Outcome: Left Message New Patient Appointment: NA Attributed Provider: Dr. Tony Shah Additional Comments: PCP is not accepting new patients. Unable to reach patient by telephone. Letter sent regarding how to establish care. [facility] 08-30-2023 History of Presen t illness Narrative [facility] [address] [place] [address] Patient: Leo Hameed Sex: male : 1980 Age: 42 y.o. PCP: KIRAN FLETCHER MD 08/30/2023 Leo Hameed is here for a(n) initial consultation for low back pain Chief Complaint Patient presents with Back Pain HPI: June 2023 Physical therapy done at [facility] June 2023 Chiropractor visits Continue HEP and TENS with little help Back Pain This is a chronic problem. Episode onset: December 2022. The problem occurs constantly. The problem has been gradually worsening since onset. The pain is present in the lumbar spine. The quality of the pain is described as cramping and aching (pinching). Radiates to: left buttocks, thigh, calf, foot. The pain is at a severity of 7/10. The pain is moderate. Worse during: varies depends on what he is doing, moving around. Exacerbated by: sitting, stairs, bending, lifting, lying, twisting, cough/sneeze. Stiffness is present: varies, sitting too long. Associated symptoms include leg pain (left leg from buttocks down leg) and numbness (left calf, left big toe). Pertinent negatives include no chest pain, fever or weakness. Treatments tried: Heat, biofreeze, lidocaine, Flexeril, MDP, high dose oral prednisone, Ibuprofen, Gabapentin, tylenol with minimal relief; ice with moderate relief; TENs unit with worsening relief. The effect of pain on patient's ADLS: Moderate Impairment. Past Medical History: Diagnosis Date Hypertension won't take pills for it Joint pain Low back pain Past Surgical History: Procedure Laterality Date COLONOSCOPY 2007 COLONOSCOPY N/A 09/25/2020 Performed by Milagros Arguelles DO at [facility] 3 VIEWS No Known Allergies History reviewed. No pertinent family history. Social History Socioeconomic History Marital status: Single Spouse name: Not on file Number of children: Not on file Years of education: Not on file Highest education level: Not on file Occupational History Not on file Tobacco Use Smoking status: Every Day Current packs/day: 0.00 Types: Cigarettes Last attempt to quit: 2000 Years since quittin.4 Smokeless tobacco: Former Substance and Sexual Activity Alcohol use: No Drug use: Yes Frequency: 7.0 times per week Types: Marijuana Sexual activity: Defer Other Topics Concern Not on file Social History Narrative Not on file Social Determinants of Health Financial Resource Strain: Not on file Food Insecurity: No Food Insecurity (08/30/2023) Hunger Screening Food Insecurity - Worry: Never True Food Insecurity - Inability: Never True Transportation Needs: Not on file Physical Activity: Not on file Stress: Not on file Social Connections: Not on file Interpersonal Safety: Not on file Housing Instability: Not on file Review of Systems Constitutional: Negative. Negative for chills, fatigue and fever. HENT: Negative. Eyes: Negative. Respiratory: Negative. Negative for cough and shortness of breath. Cardiovascular: Negative. Negative for chest pain and palpitations. Gastrointestinal: Negative. Endocrine: Negative. Genitourinary: Negative. Musculoskeletal: Positive for back pain. Allergic/Immunologic: Negative. Neurological: Positive for numbness (left calf, left big toe). Negative for weakness. Hematological: Negative. Psychiatric/Behavioral: Negative. Vital Signs: BP (!) 148/105 (BP Site: Right Arm, BP Postition: Sitting) Pulse 69 Resp 20 Ht 185.4 cm (6' 1 ) Wt (!) 144.2 kg (318 lb) BMI 41.96 kg/m Physical Exam: GENERAL - Healthy patient that appears stated age. HEENT - Normocephalic / Atraumatic, Extraoccular movements intact, trachea midline, thyroid within normal limits. CV - pulse regular, Warm extremities with appropriate color of nailbeds. RESP - No obvious wheezing, No Shortness of Breath, No overexertion response to exam maneuvers. COORDINATION - remains intact. PSYCH - Alert and Oriented x4, Attentive and appropriate, constitutionally normal, displays normal mood and affect per situation, answered questions appropriately during examination, demonstrated appropriate attention during discussion, demonstrated appropriate cognitive reasoning and understanding of the medical condition by asking appropriate questions regarding the diagnosis and risks/benefits/alternatives of treatment modalities. No obvious deficits in memory, reasoning, or intellect. Lumbar: SKIN - No rashes or bruising in the area of the patient s pain. LYMPH NODES - demonstrate no obvious enlargement. EXTREMITIES - Lower extremities are warm, with minimal edema and palpable pulses. Tenderness to palpation noted in the lumbar spine and paraspinal musculature. Pain is elicited with flexion, extension, and lateral rotation of the lumbar spine. Range of motion is diminished with these motions due to pain. Facet palpation is noted to be somewhat tender and facet loading maneuvers are mildly positive, but not concordant with the patient s normal pain complaints. STRENGTH - noted to be 5 out of 5 all muscle groups bilateral lower extremities including muscles involving hip flexion and abduction, knee flexion and extension, as well as foot dorsiflexion and plantarflexion. No notable atrophy, fasciculations or spasm. SENSORY - No notable sensory deficits in the bilateral lower extremities to touch or pinprick in all dermatomal distributions with exception to decreased sensation in the Left L5 and S1 levels. Straight Leg Raise is Positive on the Left Gait is normal. Assessment/Treatment Plan: Buck was seen today for back pain. Diagnoses and all orders for this visit: Lumbosacral spondylosis without myelopathy Disc displacement, lumbar Lumbar radiculopathy, chronic - MR lumbar spine without contrast; Future Lumbar spine MRI - It is felt that additional diagnostic testing is necessary to further evaluate the patients current pain pathology. For this reason, we will order additional imaging noted above. It is hopeful that this study will identify a significant pain generator that will be amenable to therapy. It is felt that this modality is necessary due to the severity and chronicity of symptoms and physical exam findings combined with the lack of recent imaging of the area. An MRI is specifically felt to be necessary due to the physical exam findings noted above and the patient s description of refractory pain in a neuropathic distribution that is not relieved by change in body position and interferes with the patient s activities of daily living Follow up after MRI The medications prescribed have been reviewed for medication interactions/contraindications and/or for upcoming procedures: continue current medication regimen without any changes. DISCUSSION: Treatment options discussed with patient and all questions answered to patient's satisfaction. Discussed the rules and regulations surrounding prescription of opioids and compliance at length. Failure to follow the rules and regulation will result in tapering and discontinuation of medications if applicable. Prescribed medication that requires intensive monitoring for toxicity We do not currently prescribe any controlled substance from this practice. Treatment plans discussed but not opted for at this time: Lumbar epidural steroid injection. Patient would like to proceed with the current outlined treatment plan before moving forward with any other options. The spine model was demonstrated and Xray was reviewed and used to explain the condition. Chronic conditions not treated during this visit that affected my overall medical decision making: Obesity OARRS: Reviewed. Scribe Statement: Scribed for and in the presence of NANDINI TREJO by Jessie Kern CNA. Provider Statement: I, NANDINI TREJO, personally performed the services described in the documentation, as scribed by Jessie Kern CNA in my presence, and it is both accurate and complete. Jessie Kern CNA 08/30/23 [id number] NANDINI Trejo 08/30/23 [id number] documented in this encounter [facility] 06-20-2023 Miscellaneous Notes EMPANELMENT OUTREACH Leo Hameed has been contacted in effort to establish and/or re-establish care as a new patient with [facility]: Yes Outreach Date: June 20, 2023 Outreach Reason: Attribution Outreach Method: Telephone Outreach Attempt: First Attempt Outreach Outcome: Contacted Patient New Patient Appointment: Declined Attributed Provider: Dr. Tony Shah Additional Comments: PCP is accepting new patients. Patient states that he has a primary care provider and will update his insurance carrier. documented in this encounter [facility] 06-20-2023 Telephone encounter Note EMPANELMENT OUTREACH Leo Hameed has been contacted in effort to establish and/or re-establish care as a new patient with [facility]: Yes Outreach Date: June 20, 2023 Outreach Reason: Attribution Outreach Method: Telephone Outreach Attempt: First Attempt Outreach Outcome: Contacted Patient New Patient Appointment: Declined Attributed Provider: Dr. Tony Shah Additional Comments: PCP is accepting new patients. Patient states that he has a primary care provider and will update his insurance carrier. [facility] 08-12-2020 Note CONSULTATION Consultation Date: 08-12-20 REASON FOR CONSULT: Abdominal pain and rectal pain. Abnormal CT scan. HISTORY OF PRESENT ILLNESS: The patient is a 39 year-old male with a history of hypertension, diverticulosis, anxiety, and gastroesophageal reflux disease who reports a several day history of lower abdominal pain and rectal pain for 3- 4 days, essentially upper and localized to the bilateral lower abdomen. He did talk to his family doctor, Dr. Fletcher and he was placed on Cipro and Flagyl which he just started yesterday. Because of worsening symptoms he presented to the ER. On evaluation there he was found to have a mild leucocytosis, no abscess was noted on exam. He did have a CT scan which revealed no inflammation in the lower abdomen but a small 19 mm fluid collection in the left perianal area with some swelling of the skin. According to the ER note they did feel that he may have had some drainage from the anus when they performed rectal exam. The patient denies a history of rectal pain in the past but has had lower abdominal pain before attributed to diverticulitis. He has had a previous colonoscopy that did reveal some diverticulosis. He was admitted and placed on IV antibiotics, he reports some improvement in his symptoms, still has some rectal discomfort, no drainage. The patient also has a diagnosis of irritable bowel syndrome, has had chronic problems with bowels in the past. ALLERGIES: NKDA HOME MEDICATIONS: Bentyl, lisinopril, hydrochlorothiazide, recently started on Cipro and Flagyl yesterday. PAST SURGICAL HISTORY: The patient denies any previous abdominal operations. Has had knee arthroscopy as well as previous I AND D of a thigh abscess and a previous colonoscopy. SOCIAL HISTORY: The patient denies alcohol use. Does report active marijuana use, he quit snuff in 2018. REVIEW OF SYSTEMS: Ten system review of systems is negative for recent weight loss or weight gain. Denies increased fatigue or lightheadedness. Has had no fevers, chills, or night sweats, no earache or tinnitus, no sinus congestion. No sore throat or hoarseness. No chest pain, palpitations or syncope. He has had the abdominal pain, no nausea, or vomiting, no diarrhea, some constipation. No melena, hematochezia or bright red blood per rectum. No dysuria, frequency, urgency or hematuria. No headaches, seizures or tremors. No easy bruising or bleeding. No heat or cold intolerance. No polydipsia, polyphagia or polyuria. PHYSICAL EXAM: VITALS:The patient is afebrile, BP 149/76, heart rate 82 and regular, respiratory rate 16, O2 sat 96%, BMI is 41.3. GENERAL:Well-developed, well-nourished male, currently in no acute distress. HEENT:Normocephalic, atraumatic. Sclera anicteric. Conjunctivae not injected. Oral mucosa is moist without lesions. NECK:Supple. No adenopathy, thyromegaly or JVD. LUNGS:Clear bilaterally. CARDIAC:Regular rate and rhythm without appreciable murmurs, rubs or gallops. ABDOMEN:Soft, positive bowel sounds. Nondistended. Currently nontender with no masses, hepatosplenomegaly, or hernias appreciated. No CVA tenderness. SKIN:Warm and dry without lesions, rashes or ulcers. RECTAL:Currently reveals no drainage, there is minimal induration of the skin of the buttocks medially bilaterally, but no open areas or skin lesions. There is no perirectal fluctuance, skin changes, masses, blood, no fissures, there is some tenderness on rectal exam, but not severe. NEURO:Exam is nonfocal, nonlateralizing. The patient is awake, alert and oriented with appropriate affect. MUSCULOSKELETAL:Normal muscle strength, mass and tone. LABS: White blood cell count is mildly elevated at 12,000. CT scan was personally reviewed. ASSESSMENT: That of a 39 year-old male with lower abdominal pain as well as rectal pain with a very small superficial abscess that will likely spontaneously drain. I wound recommend changing the antibiotics to Zosyn, currently he has no evidence of undrained abscess or significant cellulitis. No evidence of diverticulitis. I would recommend serial exams and white blood cell count. I would reevaluate him tomorrow. He is able to take a low residue diet as tolerated. I will be happy to follow him with you during his hospital course. cc:Dr. Fletcher. [facility] Signed and Approved by: DR MILAGROS SOLORZANO . 08/15/2020 17:31:00 [facility] Evaluation + Plan note No data available for this section [facility] General Surgery [place] Evaluation note Diagnosis Lumbar back pain with radiculopathy affecting left lower extremity- Primary Annual physical exam- Primary Routine general medical examination at a health care facility History of colon polyps Class 3 severe obesity due to excess calories without serious comorbidity with body mass index (BMI) of 40.0 to 44.9 in adult (CMS/FORMERLY [facility]) documented [facility] encounter [facility] Diagnosis Lumbosacral spondylosis without myelopathy- Primary Disc displacement, lumbar Displacement of lumbar intervertebral disc without myelopathy Lumbar radiculopathy, chronic [facility] this encounter [facility] Diagnosis Intervertebral disc disorder with radiculopathy of lumbar region- Primary [facility] this [facility] No data available for this section [facility] General Surgery [place] InstructionsNot on filedocumented in this encounter [facility] filedocumented in this [facility] No data available for this section [facility] [place] Summary Purpose Family History No Family History Records FoundNo Family History Records FoundNo Family History Records FoundNo Family History Records Found No data available for this section No Family History Records Found Advance Directives No Advanced Directives Records FoundNo Advanced Directives Records FoundNo Advanced Directives Records FoundNo Advanced Directives Records FoundNo Advanced Directives Records Found Reason for Referral Specialty Diagnoses / Procedures Referred By Contac t Referred To Contact Radiology Diagnoses Lumbar radiculopathy, chronic Procedures MR lumbar spine without contrast Peewee Dallas, PA [address] [place] [address] Referral ID Status Reason Start Date Expiration Date V isits Requested Visits Authorized [id number] Pending Review 08/30/2023 08/29/2024 1 1 Specialty Diagnoses / Procedures [facility] To Contact Diagnoses Intervertebral disc disorder with radiculopathy of lumbar region Procedures Case request operating room: INJECTION SPINE TRANSFORAMINAL LEFT L4, L5 NERVE ROOT INJ Jacques Dallas, [employer]LECT[employer] COMPUTER MECHANIC-REPAIR DEPARTMENT SUPERVISOR [address] [place] [address] Referral ID Status Reason Start Date Expiration Date V isits Requested Visits Authorized [id number] Pending Review 10/11/2023 10/10/2024 1 1 Additional Source Comments (unrecognized sect ion and content) No Status Records FoundNo Status Records FoundNo Status Records FoundNo Status Records FoundNo Status Records Found INFORMATION SOURCE (unrecogn ized section and content) DATE CREATED AUTHOR 10/25/2020 [facility] DATE CREATED AUTHOR AUTHOR'S ORGANIZ ATION 06/19/2021 [facility] DATE CREATED AUTHOR AUTHOR'S ORGANIZ ATION 10/13/2023 [facility] DATE CREATED AUTHOR AUTHOR'S ORGANIZ ATION 04/20/2024 [facility] EPIC DATE CREATED AUTHOR AUTHOR'S ORGANIZ ATION 05/10/2024 [facility] Reason for Visit (unrecogniz ed section and content) Reason Comments Annual Exam wellness Reason Comments Back Pain Reason Onset Date Comments Attribution Outreach 09/02/2023 Reason Comments Back Pain Follow-up Reason Onset Date Comments attribution outreach 06/20/2023 Care Teams (unrecognized sec tion and content) Special Education Tutor Relationship Specialty Start Date End Date Peewee Ferrell PA [address] [address] PCP - [facility] 06/06/2302/03 Kiran Fletcher MD [address] [place] [id number] PCP - [facility] 07/27/23 Special Education Tutor Relationship Specialty Start Date End Date Peewee Ferrell PA [address] [address] PCP - [facility] 06/06/2302/03 Kiran Fletcher MD [address] [place] [id number] PCP - General Family Medicine 07/27/23 Special Education Tutor Relationship Specialty Start Date End Date Kiran Fletcher MD [address] [place] [address] PCP - General 07/09/23 Special Education Tutor Relationship Specialty Start Date End Date Kiran Fletcher MD [address] [place] [address] [facility] - General 07/09/23 Special Education Tutor Relationship Specialty Start Date End Date Kiran Fletcher MD [address] [place] [address] PCP - General 09/19/16 Special Education Tutor Relationship Specialty Start Date End Date Kiran Fletcher MD [facility] - General 07/09/23 Special Education Tutor Relationship Specialty Start Date End Date Kiran Fletcher MD [facility] 07/09/23 FOR RECORDS PERTAINING TO PATIENTS WHO ARE OR HAVE BEEN ENROLLED IN A CHEMICAL DEPENDENCY/SUBSTANCEABUSE PROGRAM, SOME INFORMATION MAY BE OMITTED. This clinical summary was aggregated from multiple sources. Caution should be exercised in using it in the provision of clinical care. This summary normalizes information from multiple sources, and as a consequence, information in this document may materially change the coding, format and clinical context of patient data. In addition, data may be omitted in some cases. CLINICAL DECISIONS SHOULD BE BASED ON THE PRIMARY CLINICAL RECORDS. [facility]. provides no warranty or guarantee of the accuracy or completeness of information in this document.
[2024-05-23] MEDS: 0.9 % SODIUM CHLORIDE 500 ML 50 ML IV (08:35)
[2024-05-23 10:32] VITALS: BP 117/79; PULSE 74; TEMP 36.3; O2SAT 96
[2024-05-23 10:47] VITALS: BP 108/71; PULSE 67; O2SAT 96
[2024-05-23 11:02] VITALS: BP 102/53; PULSE 73; O2SAT 96
== END 2024-05-23 11:10 | disposition home or self-care (01) ==
PROVIDERS: PCP Family Medicine; Visit Provider Surgery
PROC: (CPT 811; principal; 2024-05-23 09:15)
DX: Z12.11 Encounter for screening for malignant neoplasm of colon (principal); K63.5 Polyp of colon; Z86.0100 Personal history of colon polyps, unspecified; M48.061 Spinal stenosis, lumbar region without neurogenic claudication; E66.01 Morbid (severe) obesity due to excess calories; Z68.41 Body mass index [BMI] 40.0-44.9, adult; K21.9 Gastro-esophageal reflux disease without esophagitis
CPT/HCPCS: 45380; J2250; J2405; J2704